=== PATIENT | male | born 1935 | race Caucasian/White ===

== ENCOUNTER 2021-06-02 13:25 | Observation (INO) | payer MEDICARE ==
[~2021-06-02] VITALS: Ht 182.9 cm; Wt 83.9 kg
[2021-06-02] MEDS ORDERED: VENTOLIN HFA18 GM INH (14:25)
[2021-06-02] MEDS ORDERED: ADVAIR 250-501 EACH INH (14:25)
[2021-06-02] MEDS ORDERED: SPIRIVA18 MCG INH (14:25)
[2021-06-02] MEDS ORDERED: LEVOTHYROXINE13 MCG PO (14:25)
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
--- NOTE | 2021-06-02 18:18 | NUR ---
DISCUSSED PLAN OF CARE WITH PT AND -CURRENT ILLNESS RSV. IV STEROIDS, OXPRN, AND LABS. PT WOULD LIKE TO STAY IN ROOM. rn WILL CALL HIS DAUGHTER KRISTIN.
--- NOTE | 2021-06-02 18:39 | NUR ---
TALKED TO PTS AWILDA GUERRA [phone] SHE IS UNABLE TO COME TO GET WILLIAM HIS - (NOT HER MOM) PT IS ALERT AND HE WOULD LIKE HER TO STAY.
--- NOTE | 2021-06-02 21:56 | NUR ---
PATIENT MOVED TO ROOM 114. PATIENT ASSESMENT COMPLETED. PATIENT IS ON RA. PATIENT DENIES ANY PAIN OR SOB. PATIENTS VITALS TAKEN AND RECORDED. INTAKE AND OUTPUT RECORDED. PATIENTS IV X2 FLUSHED AND ARE SL PER ORDER. PATIENTS SCHEDULED MEDICATIONS GIVEN PER ORDER. PATIENT DENIES ANY NEEDS. PRESENT IN THE ROOM. HOT TEA PROVIDED FOR . CALL LIGHT IN REACH.
--- NOTE | 2021-06-03 00:35 | NUR ---
PATIENTS URINAL EMPTIED. PATIENTS IS ASLEEP ON THE COUCH. PATIENT DENIES ANY NEEDS. CALL LIGHT IN REACH.
--- NOTE | 2021-06-03 03:00 | NUR ---
PATIENTS VITALS TAKEN AND RECORDED. INTAKE AND OUTPUT RECORDED. PATIENT DENIES ANY PAIN OR SOB. PATIENT DENIES ANY NEEDS. CALL LIGHT IN REACH.
--- NOTE | 2021-06-03 04:06 | NUR ---
PATIENT IS RESTING IN BED WITH EYES CLOSED, RR 18. CALL LIGHT IN REACH.
--- NOTE | 2021-06-03 06:29 | NUR ---
PATIENTS VITALS TAKEN AND RECORDED. INTAKE AND OUTPUT RECORDED. SCHEDULED MORNING MEDICATIONS GIVEN PER ORDER. PATIENT DENIES ANY SOB. PATIENT CONTINUES TO HAVE A PRODUCTIVE BROWN STREAKED SPUTUM. HE IS ON RA. PATIENT DENIES ANY NEEDS. CALL LIGHT IN REACH.
--- NOTE | 2021-06-03 07:22 | NUR ---
PT RESTING EYES CLOSED AT TIME OF SHIFT EXCHANGE, LEFT UNDISTURBED. CALL LIGHT AND NEEDED ITEMS IN REACH.
--- NOTE | 2021-06-03 09:37 | NUR ---
PT TOLERATES BREAKFAST WELL SITTING UP IN BED, IS PRESENT IN THE ROOM. PT BREATHING APPEARS EVEN AND UNLABORED, HE STATES "I FEEL A WHOLE LOT BETTER THAN WHEN I CAME IN" PT COUGH IS PRODUCTIVE. PT DENIES NEEDS AT THIS TIME STATE HE WANTS TO GO HOME.
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
--- NOTE | 2021-06-03 15:08 | NUR ---
PT RESTING IN BED APPEARS TO BE DOZING
--- NOTE | 2021-06-03 17:50 | NUR ---
DR SAPP IN TO SEE PT. ALL QUESTIONS ANSWERED. PT DENIES INCREASED SOB OR NEEDS AT THIS TIME. REAMINS ON ROOM AIR SATS LOW 90'S
--- NOTE | 2021-06-03 19:43 | NUR ---
BEDSIDE REPORT FROM TABBY Bernabe RN, PT RESTING IN BED ALERT AND ORIENTED, YUHAAVIATAM. VERALIZED NO NEEDS AT THIS TIME. NO DISTRESS NOTED AT THIS TIME.
--- NOTE | 2021-06-03 22:56 | NUR ---
PT RESTING IN BED WATCHING SPORTS ON TV. REPORTS NO PAIN. COUGHING OCCASSIONALLY HE DOES NOT WANT COUGH MEDICATIONS AT THIS TIME.
--- NOTE | 2021-06-04 00:09 | NUR ---
PT CALLED NURSES STATION TO REQUEST ASSISTANCE TO ADJUST THE HEAD OF HIS BED AND STRAIGHTEN HIS BLANKETS. EMPTIED HIS URINAL FOR 75ML OF CONCENTRATED URINE. PT HAS NO OTHER REQUESTS OR CONCERNS AT THIS TIME. CALLLIGHT IN REACH.
--- NOTE | 2021-06-04 03:30 | NUR ---
PT RESTING QUIETLY IN BED EYES CLOSED RR EVEN 18 BPM, NO DISTRESS NOTED.
--- NOTE | 2021-06-04 04:49 | NUR ---
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 NO NEW CONCERNS OVER SHIFT. HE HAS VERBALIZED WANTING TO DISCHARGE HOME TODAY IF POSSIBLE.
--- NOTE | 2021-06-04 06:05 | NUR ---
PT RESTIN IN BED ALERT AFTER LAB DRAW. V/S COMPLETE, ASSESSMENT COMPLETE. PT HAS NO OTHER CONCERNS OR REQUESTS, CALL LIGHT IN REACH
--- NOTE | 2021-06-04 07:03 | NUR ---
REPORT RECEIVED FROM SUZETTE NASCIMENTO. PT RESTING IN BED, WATCHING TV. PT ASSISTED WITH PLACING BREAKFAST ORDER. PT DENIES PAIN AND NAUSEA. 125ML CLEAR YELLOW URINE REMOVED FROM URINAL. NO ADDITIONAL REQUESTS OR COMPLAINTS. CALL LIGHT WITHIN REACH. BED RAILS UP.
--- NOTE | 2021-06-04 08:11 | NUR ---
MORNING ASSESSMENT AND MEDICATION DUE. PT RESTING IN BED, WATCHING TV. PT DENIES PAIN AND NAUSEA. IV'S ASSESSED, WNL, NO S/S OF PHLEBITIS NOTED. PT ALERT AND ORIENTED. MILD TACHYCARDIA NOTED WITH HEART RATE OF 103. PT REPORTS "YEAH, ITS' BEEN FAST FOR A WHILE." EXPIRATORY WHEEZE NOTED IN UPPER LOBES WELL UPPER AIRWAY. LUNG SOUNDS DEMINISHED IN BASES. PT REPORTS "I CAN FEEL THAT ITS TIME FOR ANOTHER BREATHING TREATEMENT." RR = 20 WITH OXYGEN SATURATIONS OF 94-95% ON ROOM AIR. PT CONTINUES COUGHING UP YELLOW THICK SPUTUM. EDUCATION DONE WITH PT REGARING RED/YELLOW/GREEN ZONES OF COPD. PT DEMONSTRATES UNDERSTANDING STATING "I'M ALMOST GREEN, I JUST DON'T HAVE ENERGY YET AND I'M STILL COUGHING STUFF UP." PT TALKING ON PHONE. NO ADDITIONAL REQUESTS OR COMPLAINTS. CALL LIGHT WITHIN REACH. BED RAILS UP.
--- NOTE | 2021-06-04 09:16 | NUR ---
THIS RN TO ROOM TO CHECK ON PT. PT SITTING UP IN BED EATING BREAKFAST. PT DECLINES TIME UP TO CHAIR. PT REPORTS HIS BREATHING "FEELS BETTER" AFTER HIS NEBULIZER TREATMENT. PT CONTINUES TO DENY PAIN AND NAUSEA. NO ADDITIONAL REQUESTS OR COMPLAINTS. CALL LIGHT WITHIN REACH.
--- NOTE | 2021-06-04 09:20 | NUR ---
PT REFUSED CHAIR. SUZETTE MUSE NOTIFIED. CALL LIGHT WITHIN REACH, NO FURTHER NEEDS AT THIS TIME.
--- NOTE | 2021-06-04 09:47 | NUR ---
PT SITTING UP IN BED WATCHING TV. CALL LIGHT WITHIN REACH, NO FURTHER NEEDS AT THIS TIME.
--- NOTE | 2021-06-04 10:00 | NUR ---
THIS RN TO ROOM TO CHECK ON PT. PT REPORTS HE WOULD LIKE TO GO HOME. PT ABLE TO CARRY ON CONVERSATION WITHOUT STOPPING FOR BREATH. PT DENIES PAIN AND NAUSEA. PT REPORTS HE FEELS HE IS BACK TO HIS BASELINE. MD UPDATED ON PT STATUS AND REQUEST. AWAITING NEW ORDERS. CALL LIGHT WITHIN REACH. BED RAILS UP.
--- NOTE | 2021-06-04 10:42 | NUR ---
MD TO BEDSIDE TO VISIT WITH PT. PT AGREES WITH PLAN FOR DISCHRAGE. IVs DC'D PER PROTOCOL. ISABELLA AND ASTON APPLIED. PT TALKING WITH FAMILY ON PHONE ABOUT PLAN FOR DISCHARGE. NO ADDIITONAL REQUESTS OR COMPLAINTS. CALL LIGHT WITHIN REACH.
--- NOTE | 2021-06-04 10:44 | NUR ---
MED REC COMPLETE
--- NOTE | 2021-06-04 11:08 | NUR ---
PT READY FOR DISCHARGE. PT DRESSES SELF, NO ASSISTANCE NEEDED. SHORTNESS OF BREATH INCREASES WITH ACTIVITY. PT RECOVERS AFTER 3-5 MINUTES OF RESTING. OXGYEN SATURATIONS REMAIN ABOVE 90% ON ROOM AIR. MILD TACHYCARDIA CONTINUES. DISCHARGE INSTRUCTIONS REVEIWED WITH PT. PT VERBALIZES UNDERSTANDING OF INSTRUCTIONS, MEDICATION, AND FOLLOW UP. PT UPTO RESTROOM INDEPENDNANTLY AND THEN TO WHEELCHAIR. PT WHEELED FROM MED/SURG. NO ADDITIONAL REQUESTS OR CONCERNS.
[2021-06-04] MEDS ORDERED: LEVOTHYROXINE75 MCG PO (11:13)
[2021-06-04] MEDS ORDERED: DILTIAZEM ER120 M2 PO (11:14)
--- NOTE | 2021-06-04 11:17 | NUR ---
ON THE WAY OUT THE DOOR PT STATES "OK, I GUESS I'LL HAVE THAT NEBULIZER." GIVEN BY THIS RN. PT TOLERATED WELL. IMPROVED WORK OF BREATHING AFTER TREATMENT. PT WHEELED FROM MED/SURG WITH BELONGINGS.
== END 2021-06-04 11:25 | disposition home or self-care (01) ==
LOC: ED 13:25 → MS 13:35
PROVIDERS: ADMIT Internal Medicine; ATTEND Internal Medicine
DX: J44.1 Chronic obstructive pulmonary disease with (acute) exacerbation (principal); J12.1 Respiratory syncytial virus pneumonia; I10 Essential (primary) hypertension; E03.9 Hypothyroidism, unspecified; R09.02 Hypoxemia; Z95.0 Presence of cardiac pacemaker; Z20.822 Contact with and (suspected) exposure to COVID-19; Z87.891 Personal history of nicotine dependence
CPT/HCPCS: 71045; 80048; 80053; 83605; 83880; 85025; 94640; 94760; C9803; J2920; J2930; J7030; U0003

== ENCOUNTER 2023-04-13 18:33 | Emergency (ER) | payer BC ==
[~2023-04-13] VITALS: Ht 182.9 cm; Wt 52.2 kg
[~2023-04-13 18:33] MED LIST: ADVAIR 250-501 EACH INH; DILTIAZEM ER240 MG PO; LEVOTHYROXINE13 MCG PO; LEVOTHYROXINE75 MCG PO; SPIRIVA18 MCG INH; VENTOLIN HFA18 GM INH
[2023-04-13] MEDS ORDERED: LEVOTHYROXINE50 MCG PO (18:47)
[2023-04-13] MEDS ORDERED: TIOTROPIUM BRO18 MCG INH (18:48)
[2023-04-13] MEDS ORDERED: MIRALAX119 GM PO (23:56)
[2023-04-14 01:00] VITALS: BP 162/81
== END 2023-04-14 01:00 | disposition home or self-care (01) ==
LOC: ED 18:33
DX: K59.00 Constipation, unspecified (principal); J44.9 Chronic obstructive pulmonary disease, unspecified; E03.9 Hypothyroidism, unspecified; I10 Essential (primary) hypertension; Z79.899 Other long term (current) drug therapy
CPT/HCPCS: 74018; 99283-25

== ENCOUNTER 2023-04-16 18:41 | Observation (INO) | payer MEDICARE ==
[~2023-04-16] VITALS: Ht 172.7 cm; Wt 54.0 kg
[~2023-04-16 18:41] MED LIST changes: +LEVOTHYROXINE50 MCG PO; +MIRALAX119 GM PO; +TIOTROPIUM BRO18 MCG INH
--- OUTSIDE RECORDS SUMMARY | 2023-04-16 18:49 | XMS ---
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 ETerence VISIT COUNT (12 MO.) 2 [facility] TOTAL 2 NOTE: Visits indicate total known visits. ED/UCC VISIT TRACKING (12 MO.) 04/16/2023 18:41 [facility] OR TYPE: Emergency COMPLAINT: - CONSTIPATION 04/13/2023 18:33 [facility] OR TYPE: Emergency COMPLAINT: - WEAKNESS DIAGNOSES: - Chronic obstructive pulmonary disease, unspecified - Constipation, unspecified - Essential (primary) hypertension - Hypothyroidism, unspecified - Other terminal computer operator (current) drug therapy INPATIENT VISIT TRACKING (12 MO.) No inpatient visits to display in this time frame [email or web address]
[2023-04-16 19:55] LABS: BASOPHILS 0.5 % (0-2); HEMATOCRIT 39.6 % (35.0-50.0); HEMOGLOBIN 13.4 g/dL (12.0-18.0); LYMPHOCYTES 14.7 % (24-44); MCH 31.7 (27-36); MCHC 33.9 g/dl (30-36); MCV 93.8 fl (81-99); MONOCYTES 15.1 % (0-12); NEUTROPHILS 67.7 % (39-80); PLATELET COUNT 219 K/uL (140-440); RBC 4.22 M/ul (4.3-5.7); RDW 12.2 (10.5-15.0)
[2023-04-16 20:21] LABS: ALBUMIN 3.4 g/dL (3.4-5.0); ALBUMIN/GLOBULIN RATIO 0.97 (1.1-2.4); BILIRUBIN, TOTAL 1.3 ng/dL (0.2-1.0); BUN/CREATININE RATIO 22.1 (6.0-28.6); CALCIUM 8.6 mg/dL (8.5-10.1); CREATININE, SERUM 1.9 mg/dL (0.70-1.30); MAGNESIUM 2.8 mg/dL (1.8-2.4); PROTEIN, TOTAL 6.9 g/dL (6.4-8.2); TSH, 3RD GENERATION 2.789 uIU/mL (0.358-3.740)
[2023-04-16 21:11] LABS: BILIRUBIN, URINE NEGATIVE (negative); BLOOD/HGB, URINE LARGE (Negative); KETONE, URINE NEGATIVE (Negative); LEUK ESTERASE, URINE SMALL (negative); NITRITE, URINE NEGATIVE (negative); PH, URINE 5.5 (5-7)
[2023-04-16 21:22] LABS: BACTERIA, URINE 1+ /hpf (negative); EPITHELIAL CELLS, URINE 0 /lpf (0-1+); RED BLOOD CELLS, URINE >50 /hpf (0-5); REFLEX CULTURE, URINE Yes (No); WHITE BLOOD CELLS, URINE 21-40 /HPF (0-5)
[2023-04-16 22:28] LABS: INFLUENZA B NAA NEGATIVE (NEGATIVE); RESPIRATORY SYNCYTIAL VIR NAA NEGATIVE (NEGATIVE)
[2023-04-16 23:03] VITALS: BP 145/59
[2023-04-16] MEDS ORDERED: ADULT LOW DOSE81 MG PO (23:08)
--- NOTE | 2023-04-16 23:20 | NUR ---
Pt admitted to room 120 from ER via stretcher, repositioned self from gourney to bed. alert and oriented, hx pacemaker placement 5 yrs ago, luisa CP or SOB. coop with assessment. lungs dim at bases, on room air. occassional moist productive cough of thick yellow phlegm present. bruised areas from elbows to hands. Pt states he is on aspirin but does not know how the bruising came about. f/c applied in ER today 04/16. draining QS pinkish-red colored urine. moves all extremities well. abd slight distention, soft, JOAQUIM. stated LBM when he came to the ER for constipation. Hx of constipation. IV LAC patent, will start LR as per orders. Oriented to room and procedures, cooperative, [place], reads lips. Fall precautions in place
--- NOTE | 2023-04-17 00:35 | NUR ---
Resting, eyes closed, on room air, IVF infusing, bed alrm on per fall precautions. no s/sx distress or requests
[2023-04-17 03:18] VITALS: BP 146/59
[2023-04-17 05:23] LABS: EOSINOPHILS 4.7 % (0-6); HEMATOCRIT 33.8 % (35.0-50.0); HEMOGLOBIN 11.6 g/dL (12.0-18.0); LYMPHOCYTES 21.8 % (24-44); MCH 31.8 (27-36); MCHC 34.4 g/dl (30-36); MCV 92.6 fl (81-99); MONOCYTES 14.4 % (0-12); NEUTROPHILS 58.1 % (39-80); PLATELET COUNT 189 K/uL (140-440); RBC 3.65 M/ul (4.3-5.7); RDW 12.3 (10.5-15.0)
[2023-04-17 05:50] LABS: ALBUMIN 2.7 g/dL (3.4-5.0); ANION GAP 13.2 (7-21); BILIRUBIN, TOTAL 0.9 ng/dL (0.2-1.0); BUN/CREATININE RATIO 23.35 (6.0-28.6); CALCIUM 8.1 mg/dL (8.5-10.1); CREATININE, SERUM 1.37 mg/dL (0.70-1.30); POTASSIUM 4.2 mmol/L (3.5-5.1); PROTEIN, TOTAL 5.4 g/dL (6.4-8.2)
[2023-04-17 06:34] VITALS: BP 132/58
--- NOTE | 2023-04-17 06:43 | NUR ---
Awakes easily, IVF infusing w/o problems. no c/o pain. f/c patent, draining dark yellow urine now with a few blood clots. f/c patent. pt tolerating liquids well, turns and repositions self in bed
--- NOTE | 2023-04-17 07:29 | NUR ---
RECIEVED SHIFT REPORT FROM NURSE. PT IS CURRENTLY IN BED RESTING. EVEN AND UNLABORED BREATHING NOTED. NO OTHER CARES NEEDED AT THIS TIME. CALL LIGHT WITHIN REACH
--- NOTE | 2023-04-17 08:46 | NUR ---
PT IS CURRENTLY IN BED EATING BREAKFAST. PT HAD FLU SHOT ORDERED. WHEN OFFERED PT STATED HE WANTED TO RECIEVE THE SHOT. FLU SHOT GIVEN. PT TOLERATED WELL. NO OTHER CARES ARE NEEDED OR REQUESTED AT THIS TIME. CALL LIGHT WITHIN REACH
[2023-04-17 10:00] VITALS: BP 134/48
--- NOTE | 2023-04-17 11:02 | NUR ---
DR JOSEPHINE DOCKERYED THE DC OF PT DILAN AND DC CONTINUOUS LR FLUID. PT TOLERATED WELL. ALSO PT DAUGHTER MICKEY IN ROOM. NO OTHER CARES NEEDED OR REQUESTED AT THIS TIME. CALL LIGHT WITHIN REACH
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
[2023-04-17 13:22] VITALS: BP 112/50
--- NOTE | 2023-04-17 14:37 | NUR ---
UR NOTE MCG GENERAL CRITERIA: OBSERVATION CARE (ISC) 04/17/23 MET AT ADMIT
--- NOTE | 2023-04-17 15:28 | NUR ---
BLADDER SCANNED FOR 410. GIVEN ANOTHER ENSURE PER HIS REQUEST AND INSTRUCTED TO DRINK MORE. DTR IN ROOM AND GIVEN THE BUSINESS CARDS FOR MILAGRO.
--- NOTE | 2023-04-17 15:45 | NUR ---
SPOKE WITH DTR REGARDING CARE AND FOLLOW UP.
--- NOTE | 2023-04-17 17:06 | NUR ---
PT HASN'T URINATED SINCE KONG CATHETER WAS OUT. BLADDER SCANNED EARLIER REVEALED 410 MLS. BLADDER SCAN NOW SHOWED 544 ML. PT WAS ENCOURAGED TO USE THE RESTROOM WITH NO SUCCESS. ENCOURAGED TO AMBULATE THE BRIGGS AND PATIENT DID FINE BUT WHEN HE WENT BACK TO HIS ROOM TO TRY AND URINATE THERE NO SUCCESS. DR BURTON CALLED AND INFORMED HIM OF THE SITUATION AND DR BURTON ORDERED FOR PT TO BE STRAIGHT CATH'D.
[2023-04-17 18:11] VITALS: BP 118/50
--- NOTE | 2023-04-17 18:42 | NUR ---
PT STILL UNABLE TO VOID AFTER TRYING AGAIN, DRINKING JUICE, AMBULATING. STRAIGHT CATHD FOR 530ML.TOLERATED WELL AND NO BLOOD NOTED. PT REPORTS FEELING NO DIFFERENCE AFTER DRAINING THE URINE. SAMPLE SENT TO LAB PER DR BURTON.
[2023-04-17 19:07] LABS: BILIRUBIN, URINE NEGATIVE (negative); BLOOD/HGB, URINE LARGE (Negative); KETONE, URINE NEGATIVE (Negative); LEUK ESTERASE, URINE TRACE (negative); NITRITE, URINE NEGATIVE (negative)
[2023-04-17 19:12] LABS: WHITE BLOOD CELLS, URINE 21-40 /HPF (0-5)
[2023-04-17 19:14] LABS: BACTERIA, URINE RARE /hpf (negative); CRYSTALS, URINE NONE SEEN (0-1+); EPITHELIAL CELLS, URINE 0 /lpf (0-1+); REFLEX CULTURE, URINE No (No)
[2023-04-17 19:19] LABS: CASTS, URINE NONE SEEN \\lpf
[2023-04-17 19:20] LABS: COLLECTION TYPE, URINE CATH
--- NOTE | 2023-04-17 19:42 | NUR ---
REPORT RECEIVED FROM SUZETTE WEINSTEIN. pt RESTING IN BED AWAKE, WATCHING TV. DENIES NEEDS. CALL LIGHT IN REACH. BED ALARM ON.
[2023-04-17 20:23] VITALS: BP 123/60
--- NOTE | 2023-04-17 20:39 | NUR ---
VS COMPLETE, STABLE. pt RATES PAIN 1-2/10 "DOWN THERE, MY BALLS HURT". PRN TYLENOL ADMINISTERED. ASSESSMENT COMPLETE. ICE WATER REFILLED. CRANBERRY JUICE PROVIDED. pt DENIES NEED TO VOID AT THIS TIME. CALL LIGHT IN REACH.
--- NOTE | 2023-04-17 20:52 | NUR ---
PHONE CALL TO MD, TELEPHONE ORDER RECEIVED FOR SCHEDULED FLOMAX DAILY. ORDER TO STRAIGHT CATH FOR GREATER THAN 500 MLS URINARY RETENTION. ORDERS REPEATED BACK TO VERIFY.
--- NOTE | 2023-04-17 21:10 | NUR ---
SCHEDULED FLOMAX ADMINISTERED. EDUCATION PROVIDED. pt WATCHING TV. DENIES ANY NEEDS.
--- NOTE | 2023-04-18 00:15 | NUR ---
CHECKED ON pt. RESTING IN BED WITH EYES CLOSED. BREATHING EQUAL AND UNLABORED. BED ALARM ON.
--- NOTE | 2023-04-18 02:26 | NUR ---
CALL LIGHT ANSWERED. pt DROPPED REMOTE. BLADDER SCAN FOR >646 AT THIS TIME. SBA TO RESTROOM, pt UNABLE TO VOID. LOOSE BM NOTED. pt BACK IN BED, STRAIGHT CATH FOR 725 MLS BY SUZETTE OSPINA. pt TOLERATED WELL. STERILE TECHNIQUE MAINTAINED. WARM BLANKET PROVIDED. pt RESTING IN BED WATCHING TV AT THIS TIME.
[2023-04-18 05:26] VITALS: BP 115/44
[2023-04-18 05:29] LABS: MCH 31.9 (27-36)
--- NOTE | 2023-04-18 05:30 | NUR ---
pt AWAKE FOR LAB DRAW. VSS. DENIES TOILETING NEEDS. pt REQUESTING TO SLEEP, DROWSY. LIGHTS OFF IN ROOM. CALL LIGHT IN REACH.
[2023-04-18 05:32] LABS: BASOPHILS 1.1 % (0-2); EOSINOPHILS 8.2 % (0-6); HEMATOCRIT 34.1 % (35.0-50.0); HEMOGLOBIN 11.7 g/dL (12.0-18.0); LYMPHOCYTES 26.7 % (24-44); MCHC 34.4 g/dl (30-36); MCV 92.6 fl (81-99); MONOCYTES 17.1 % (0-12); NEUTROPHILS 46.9 % (39-80); PLATELET COUNT 210 K/uL (140-440); RBC 3.68 M/ul (4.3-5.7); RDW 12.4 (10.5-15.0)
[2023-04-18 05:40] LABS: ANION GAP 10.1 (7-21); BUN/CREATININE RATIO 20.16 (6.0-28.6); CALCIUM 8.1 mg/dL (8.5-10.1); CREATININE, SERUM 1.19 mg/dL (0.70-1.30); POTASSIUM 4.1 mmol/L (3.5-5.1)
--- NOTE | 2023-04-18 07:22 | NUR ---
VERBAL REPORT RECEIVED FROM SUZETTE BARRERA. PT RESTS IN BED WITH EYES CLOSED, RESP EVEN AND UNLABORED, 20 RPM.
--- NOTE | 2023-04-18 08:08 | NUR ---
PATIENT UP TO BATHROOM AND BACK TO SITTING UP IN BED, SBA. CALL LIGHT IN REACH. NO FURHTER NEEDS AT THIS TIME.
--- NOTE | 2023-04-18 09:40 | NUR ---
0903 - PT REPORTS DULL PAIN IN HIS LOWER ABDOMEN. DENIES SENSATION TO VOID. BLADDER SCAN SHOWS 602 MLS. PT ATTEMPTS TO VOID, PASSES BM, UNCERTAIN IF VOID OCCURRED. BLADDER SCAN REPEATED FOR PVR, 621 MLS NOTED IN BLADDER. STRAIGHT CATH PERFORMED VIA STERILE TECHNIQUE WITH 14 FR. 650 MLS OF URINE REMOVED. PT REPORTS RELIEF OF LOWRE ABDOMINAL PAIN. RESISTANCE NOTED DURING STRAIGHT CATH.
--- NOTE | 2023-04-18 11:40 | NUR ---
Spoke with Lg. He states he resides at [facility]. He drives and does not use any DME. His lives at [facility] and he sees her daily. He denies any needs at this time. Pt has not been able to void with feng removal. Dr. Cohn and Ena Rn are setting fu appt for pt to see Dr. Chinchilla and chief technology officer for feng care as needed. Ena was faxing RX and chart to Dr. Chinchilla office.
--- NOTE | 2023-04-18 12:30 | NUR ---
PT SITS UP IN BED, EATS LUNCH. ICE WATER AND CRANBERRY JUICE PROVIDED. CALL LIGHT IN REACH. NO FURTHER REQUESTS AT THIS TIME.
--- NOTE | 2023-04-18 13:51 | NUR ---
PT APPEARED TO BE SLEEPING WITH CURTAIN CLOSED AND LIGHTS OFF. DID NOT DISTURB. PRAYED SILENTLY FOR PROTESTANT OF PROPER BODILY FUNCTION.
[2023-04-18] MEDS ORDERED: TAMSULOSIN HCL0.4 MG PO (14:03)
--- NOTE | 2023-04-18 14:19 | NUR ---
PT UP TO BATHROOM, UNABLE TO VOID, PASSES SMALL BM.
--- NOTE | 2023-04-18 15:20 | NUR ---
16 FR KONG CATHETER INSERTED VIA STERILE TECHNIQUE, URINE RETURN NOTED, KONG ADVANCED 1 CM, BALLOON FILLED WITH 10 CC OF NS AND SEEDED. CATHETER SECURED TO RLE. PT TOLERATED WELL. GRAVITY BAG IN PLACE DRAINS CLEAR YELLOW URINE.
[2023-04-18 15:32] VITALS: BP 131/43
--- NOTE | 2023-04-18 16:31 | NUR ---
DISCHARGE INSTRUCTIONS REVIEWED WITH PATIENT, QUESTIONS AND ANSWERS. PATIENT WAS ABLE TO EMPTY HIS KONG CATHETER INTO THE TOILET, IS MINDFUL OF WHERE HIS KONG BAG IS. PATIENT UP TO BATHROOM TO TRY AND BM BEFORE D/C. PATIENT IS GETTING HELP DRESSING.
[2023-04-18 16:58] VITALS: BP 134/47
== END 2023-04-18 17:45 | disposition home or self-care (01) ==
LOC: ED 18:41 → MS 18:42
PROVIDERS: Internal Medicine; ADMIT Family Medicine; ATTEND Family Medicine
DX: N13.9 Obstructive and reflux uropathy, unspecified (principal); K59.09 Other constipation; N17.9 Acute kidney failure, unspecified; J44.9 Chronic obstructive pulmonary disease, unspecified; I10 Essential (primary) hypertension; E03.9 Hypothyroidism, unspecified
CPT/HCPCS: 36415; 51702; 51798; 74176; 80048; 80053; 81001; 83735; 84443; 85025; 87088; 87502; A9270; G0008; G0378; J0696; J7121; U0002

== ENCOUNTER 2023-05-04 10:43 | Emergency (ER) | payer MEDICARE ==
[~2023-05-04] VITALS: Ht 172.7 cm; Wt 54.7 kg
[~2023-05-04 10:43] MED LIST changes: +ADULT LOW DOSE81 MG PO; +TAMSULOSIN HCL0.4 MG PO
--- OUTSIDE RECORDS SUMMARY | 2023-05-04 10:52 | XMS ---
PreManage Notification: WILFREDO SERVIN Security Barrel Bung Remover And Dumper Events No recent Security Events currently on file CRITERIA MET - [facility] - 2 Visits in 30 Days CARE PROVIDERS EDELMIRA VARGAS Internal Medicine Current PHONE: Unknown [facility] Current PHONE: Unknown Srinivasa has no Care Guidelines for this patient. ETerence VISIT COUNT (12 MO.) [address] [place] [address] TOTAL 3 NOTE: Visits indicate total known visits. ED/UCC VISIT TRACKING (12 MO.) 05/04/2023 10:44 [facility] OR TYPE: Emergency COMPLAINT: - LOWER EXTREMITY SWELLING 04/16/2023 18:41 [facility] OR TYPE: Emergency COMPLAINT: - CONSTIPATION 04/13/2023 18:33 [facility] OR TYPE: Emergency COMPLAINT: - WEAKNESS DIAGNOSES: - Chronic obstructive pulmonary disease, unspecified - Constipation, unspecified - Essential (primary) hypertension - Hypothyroidism, unspecified - Other mcfp (current) drug therapy INPATIENT VISIT TRACKING (12 MO.) 04/16/2023 18:[address] [facility] OR TYPE: Observation COMPLAINT: - ACUTE KIDNEY INJURY, UTI DIAGNOSES: - Acute kidney failure, unspecified - Chronic obstructive pulmonary disease, unspecified - Encounter for screening for COVID-19 - Essential (primary) hypertension - Hypothyroidism, unspecified - Obstructive and reflux uropathy, unspecified - Other constipation [email or web address]
[2023-05-04] MEDS ORDERED: CLOTRIMAZOLE-BE15 GM TOP (11:34)
[2023-05-04 12:00] VITALS: BP 124/55
== END 2023-05-04 12:00 | disposition home or self-care (01) ==
LOC: ED 10:43
DX: N48.1 Balanitis (principal); J44.9 Chronic obstructive pulmonary disease, unspecified; I10 Essential (primary) hypertension; E03.9 Hypothyroidism, unspecified; Z95.0 Presence of cardiac pacemaker; Z79.899 Other long term (current) drug therapy; Z79.890 Hormone replacement therapy
CPT/HCPCS: 99283

== ENCOUNTER 2023-05-10 20:36 | Emergency (ER) | payer MEDICARE ==
[~2023-05-10] VITALS: Ht 172.7 cm; Wt 59.0 kg
[~2023-05-10 20:36] MED LIST changes: +CLOTRIMAZOLE-BE15 GM TOP
--- OUTSIDE RECORDS SUMMARY | 2023-05-10 20:41 | XMS ---
PreManage Notification: WILFREDO SERVIN Security Maintenance Repairman Events No recent Security Events currently on file CRITERIA MET - [facility] - 2 Visits in 30 Days CARE PROVIDERS EDELMIRA VARGAS Internal Medicine Current PHONE: Unknown [facility] Current PHONE: Unknown Srinivasa has no Care Guidelines for this patient. ETerence VISIT COUNT (12 MO.) [address] [place] [address] TOTAL 4 NOTE: Visits indicate total known visits. ED/UCC VISIT TRACKING (12 MO.) 05/10/2023 20:36 [facility] OR TYPE: Emergency COMPLAINT: - SHORTNESS OF BREATH 05/04/2023 10:44 [facility] OR TYPE: Emergency COMPLAINT: - LOWER EXTREMITY SWELLING DIAGNOSES: - Balanitis - Chronic obstructive pulmonary disease, unspecified - Disorder of penis, unspecified - Essential (primary) hypertension - Hormone replacement therapy - Hypothyroidism, unspecified - Other ad terminal makeup operator (current) drug therapy - Presence of cardiac pacemaker 04/16/2023 18:41 [facility] OR TYPE: Emergency COMPLAINT: - CONSTIPATION 04/13/2023 18:33 [facility] OR TYPE: Emergency COMPLAINT: - WEAKNESS DIAGNOSES: - Chronic obstructive pulmonary disease, unspecified - Constipation, unspecified - Essential (primary) hypertension - Hypothyroidism, unspecified - Other ad terminal makeup operator (current) drug therapy INPATIENT VISIT TRACKING (12 MO.) 04/16/2023 18:42 [facility] OR TYPE: Observation COMPLAINT: - ACUTE KIDNEY INJURY, UTI DIAGNOSES: - Acute kidney failure, unspecified - Chronic obstructive pulmonary disease, unspecified - Contact with and (suspected) exposure to COVID-19 - Encounter for screening for COVID-19 - Essential (primary) hypertension - Hypothyroidism, unspecified - Obstructive and reflux uropathy, unspecified - Other constipation [email or web address]
[2023-05-10] MEDS ORDERED: SPIRIVA18 MCG INH (20:50)
[2023-05-10] MEDS ORDERED: TAMSULOSIN HCL0.4 MG PO (20:50)
[2023-05-10 21:08] LABS: PH, VENOUS 7.399 (7.31-7.41)
[2023-05-10 21:11] LABS: BASOPHILS 0.2 % (0-2); EOSINOPHILS 0.6 % (0-6); HEMOGLOBIN 11.9 g/dL (12.0-18.0); LYMPHOCYTES 6.3 % (24-44); MCH 31.4 (27-36); MCHC 33.2 g/dl (30-36); MCV 94.7 fl (81-99); MONOCYTES 2.5 % (0-12); NEUTROPHILS 90.4 % (39-80); PLATELET COUNT 216 K/uL (140-440); RDW 12.7 (10.5-15.0)
[2023-05-10 21:23] LABS: INFLUENZA B NAA NEGATIVE (NEGATIVE); RESPIRATORY SYNCYTIAL VIR NAA NEGATIVE (NEGATIVE)
[2023-05-10 21:29] LABS: LACTIC ACID, BLOOD 1.3 mmol/L (0.4-2.0)
[2023-05-10 21:36] LABS: ALBUMIN 3.6 g/dL (3.4-5.0); ALBUMIN/GLOBULIN RATIO 1.09 (1.1-2.4); ANION GAP 12.3 (7-21); BILIRUBIN, TOTAL 1.1 ng/dL (0.2-1.0); BUN/CREATININE RATIO 17.75 (6.0-28.6); CALCIUM 8.6 mg/dL (8.5-10.1); CREATININE, SERUM 1.07 mg/dL (0.70-1.30); POTASSIUM 4.3 mmol/L (3.5-5.1); PROTEIN, TOTAL 6.9 g/dL (6.4-8.2)
[2023-05-10 22:40] VITALS: BP 130/53
--- NOTE | 2023-05-11 15:22 | EKG ---
[facility] [address] [facility] [place] [address] Signed Sinus tachycardia Nonspecific T wave abnormality Abnormal ECG No previous ECGs available Confirmed by LISA GARNER MD ([id number]) on 05/11/2023 3:22:13 PM Electronically Signed By: LISA GARNER 05/11/23 1522 PATIENT NAME: WILFREDO SERVIN CARIN Electrocardiogram DATE OF : 35 PHYSICIAN: LISA GARNER REPORT #: [id number] REPORT IS CONFIDENTIAL AND NOT TO BE RELEASED WITHOUT AUTHORIZATION
== END 2023-05-10 22:42 | disposition home or self-care (01) ==
LOC: ED 20:36
PROVIDERS: Family Medicine
DX: J44.1 Chronic obstructive pulmonary disease with (acute) exacerbation (principal); I10 Essential (primary) hypertension; E03.9 Hypothyroidism, unspecified; Z11.52 Encounter for screening for COVID-19; Z79.51 Long term (current) use of inhaled steroids; Z79.82 Long term (current) use of aspirin; Z79.890 Hormone replacement therapy; Z79.899 Other long term (current) drug therapy; Z20.822 Contact with and (suspected) exposure to COVID-19
CPT/HCPCS: 36415; 71045; 80053; 82803; 83605; 83880; 85025; 87502; 93005; 93010; 94640; 96374; 99285-25; A9270; C9803; J2930; U0002

== ENCOUNTER 2023-06-24 07:57 | Emergency (ER) | payer OTHER, MEDICARE ==
[~2023-06-24] VITALS: Ht 172.7 cm; Wt 56.1 kg
[~2023-06-24 07:57] MED LIST changes: +LASIX20 MG PO; +PREDNISONE20 MG PO
--- OUTSIDE RECORDS SUMMARY | 2023-06-24 08:01 | XMS ---
PreManage Notification: WILFREDO SERVIN Security Chief Merchandising Officer Events No recent Security Events currently on file CRITERIA MET - 6 ED Visits in 6 Months - [facility] - 2 Visits in 30 Days CARE PROVIDERS EDELMIRA VARGAS Internal Medicine Current PHONE: Unknown [facility] Current PHONE: Unknown Srinivasa has no Care Guidelines for this patient. Robinson VISIT COUNT (12 MO.) [address] [place] [address] TOTAL 6 NOTE: Visits indicate total known visits. ED/UCC VISIT TRACKING (12 MO.) 06/24/2023 07:57 [facility] OR TYPE: Emergency COMPLAINT: - DIFFICULTY BREATHING 06/19/2023 16:43 [facility] OR TYPE: Emergency COMPLAINT: - FOOT SWELLING DIAGNOSES: - Chronic obstructive pulmonary disease with (acute) exacerbation - Heart failure, unspecified - Hormone replacement therapy - Hypertensive heart disease with heart failure - Hypo-osmolality and hyponatremia - Hypothyroidism, unspecified - alf (current) use of aspirin - Other shelter (current) drug therapy - Presence of cardiac pacemaker - Shortness of breath 05/10/2023 20:36 [facility] OR TYPE: Emergency COMPLAINT: - SHORTNESS OF BREATH DIAGNOSES: - Chronic obstructive pulmonary disease with (acute) exacerbation - Contact with and (suspected) exposure to COVID-19 - Encounter for screening for COVID-19 - Essential (primary) hypertension - Hormone replacement therapy - Hypothyroidism, unspecified - keno terminal operator (current) use of aspirin - alf (current) use of inhaled steroids - Other long term care pharmacist (current) drug therapy - Shortness of breath 05/04/2023 10:44 [facility] OR TYPE: Emergency COMPLAINT: - LOWER EXTREMITY SWELLING DIAGNOSES: - Balanitis - Chronic obstructive pulmonary disease, unspecified - Disorder of penis, unspecified - Essential (primary) hypertension - Hormone replacement therapy - Hypothyroidism, unspecified - Other shelter (current) drug therapy - Presence of cardiac pacemaker 04/16/2023 18:41 [facility] OR TYPE: Emergency COMPLAINT: - CONSTIPATION 04/13/2023 18:33 [facility] OR TYPE: Emergency COMPLAINT: - WEAKNESS DIAGNOSES: - Chronic obstructive pulmonary disease, unspecified - Constipation, unspecified - Essential (primary) hypertension - Hypothyroidism, unspecified - Other long term care pharmacist (current) drug therapy INPATIENT VISIT TRACKING (12 MO.) 04/16/2023 18:42 [facility] OR TYPE: Observation COMPLAINT: - ACUTE KIDNEY INJURY, UTI DIAGNOSES: - Acute kidney failure, unspecified - Chronic obstructive pulmonary disease, unspecified - Contact with and (suspected) exposure to COVID-19 - Encounter for screening for COVID-19 - Essential (primary) hypertension - Hypothyroidism, unspecified - Obstructive and reflux uropathy, unspecified - Other constipation [email or web address]
[2023-06-24 08:12] LABS: BASOPHILS 0.2 % (0-2); EOSINOPHILS 0.8 % (0-6); HEMATOCRIT 33.1 % (35.0-50.0); HEMOGLOBIN 11.3 g/dL (12.0-18.0); LYMPHOCYTES 9.3 % (24-44); MCH 31.6 (27-36); MCHC 34.1 g/dl (30-36); MCV 92.7 fl (81-99); MONOCYTES 9.7 % (0-12); PLATELET COUNT 200 K/uL (140-440); RBC 3.57 M/ul (4.3-5.7); RDW 13.3 (10.5-15.0)
[2023-06-24 08:38] LABS: ALBUMIN/GLOBULIN RATIO 0.97 (1.1-2.4); ANION GAP 11.9 (7-21); BILIRUBIN, TOTAL 1.5 ng/dL (0.2-1.0); BUN/CREATININE RATIO 21.73 (6.0-28.6); CALCIUM 8.4 mg/dL (8.5-10.1); CREATININE, SERUM 1.15 mg/dL (0.70-1.30); POTASSIUM 3.9 mmol/L (3.5-5.1); PROTEIN, TOTAL 6.1 g/dL (6.4-8.2)
[2023-06-24] MEDS ORDERED: IPRAT-ALBUT 0.5-3 ML INH (09:25)
[2023-06-24] MEDS ORDERED: VENTOLIN HFA18 GM INH (09:25)
[2023-06-24] MEDS ORDERED: NEBULIZER UNIT XX (09:26)
[2023-06-24 09:48] VITALS: BP 107/57
[2023-06-24] MEDS ORDERED: K-TAB ER20 MEQ PO (10:23)
[2023-06-24] MEDS ORDERED: LASIX20 MG PO (10:23)
[2023-06-24] MEDS ORDERED: PREDNISONE20 MG PO (10:23)
== END 2023-06-24 11:44 | disposition home or self-care (01) ==
LOC: ED 07:57
PROVIDERS: Emergency Medicine
DX: J44.1 Chronic obstructive pulmonary disease with (acute) exacerbation (principal); I11.0 Hypertensive heart disease with heart failure; I50.9 Heart failure, unspecified; Z79.52 Long term (current) use of systemic steroids; Z79.899 Other long term (current) drug therapy; Z79.82 Long term (current) use of aspirin
CPT/HCPCS: 36415; 71045; 80053; 83880; 85025; 87502; 94640; 94664; 96374; 96375; 99285-25; J1940; J2930; U0002

== ENCOUNTER 2023-07-06 18:47 | Emergency (ER) | payer OTHER, MEDICARE ==
[~2023-07-06] VITALS: Ht 175.3 cm; Wt 56.1 kg
[~2023-07-06 18:47] MED LIST changes: +IPRAT-ALBUT 0.5-3 ML INH; +K-TAB ER20 MEQ PO; +NEBULIZER UNIT XX
--- OUTSIDE RECORDS SUMMARY | 2023-07-06 18:54 | XMS ---
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 Robinson VISIT COUNT (12 MO.) [address] [place] [address] TOTAL 7 NOTE: Visits indicate total known visits. ED/UCC VISIT TRACKING (12 MO.) 07/06/2023 18:47 ANASTASIYA Archer OR TYPE: Emergency COMPLAINT: - CATHETER PROBLEM 06/24/2023 07:57 ANASTASIYA rAcher OR TYPE: Emergency COMPLAINT: - DIFFICULTY BREATHING DIAGNOSES: - Chronic obstructive pulmonary disease with (acute) exacerbation - Heart failure, unspecified - Hypertensive heart disease with heart failure - halfway (current) use of aspirin - intermediate manager (current) 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 - Other joint terminal attack controller (current) drug therapy - Shortness of breath 06/19/2023 16:43 ANASTASIYA [facility] OR TYPE: Emergency COMPLAINT: - FOOT SWELLING DIAGNOSES: - Chronic obstructive pulmonary disease with (acute) exacerbation - Heart failure, unspecified - Hormone replacement therapy - Hypertensive heart disease with heart failure - Hypo-osmolality and hyponatremia - Hypothyroidism, unspecified - intermediate manager (current) use of aspirin - Other joint terminal attack controller (current) drug therapy - Presence of cardiac pacemaker - Shortness of breath 05/10/2023 20:36 ANASTASIYA [facility] OR TYPE: Emergency COMPLAINT: - SHORTNESS OF BREATH DIAGNOSES: - Chronic obstructive pulmonary disease with (acute) exacerbation - Contact with and (suspected) exposure to COVID-19 - Encounter for screening for COVID-19 - Essential (primary) hypertension - Hormone replacement therapy - Hypothyroidism, unspecified - intermediate manager (current) use of aspirin - intermediate manager (current) use of inhaled steroids - Other joint terminal attack controller (current) drug therapy - Shortness of breath 05/04/2023 10:44 ANASTASIYA Archer OR TYPE: Emergency COMPLAINT: - LOWER EXTREMITY SWELLING DIAGNOSES: - Balanitis - Chronic obstructive pulmonary disease, unspecified - Disorder of penis, unspecified - Essential (primary) hypertension - Hormone replacement therapy - Hypothyroidism, unspecified - Other joint terminal attack controller (current) drug therapy - Presence of cardiac pacemaker 04/16/2023 18:41 ANASTASIYA Archer OR TYPE: Emergency COMPLAINT: - CONSTIPATION 04/13/2023 18:33 ANASTASIYA Archer OR TYPE: Emergency COMPLAINT: - WEAKNESS DIAGNOSES: - Chronic obstructive pulmonary disease, unspecified - Constipation, unspecified - Essential (primary) hypertension - Hypothyroidism, unspecified - Other skilled nursing (current) drug therapy INPATIENT VISIT TRACKING (12 MO.) 04/16/2023 18:42 ANASTASIYA Archer OR TYPE: Observation COMPLAINT: - ACUTE KIDNEY INJURY, UTI DIAGNOSES: - Acute kidney failure, unspecified - Chronic obstructive pulmonary disease, unspecified - Contact with and (suspected) exposure to COVID-19 - Encounter for screening for COVID-19 - Essential (primary) hypertension - Hypothyroidism, unspecified - Obstructive and reflux uropathy, unspecified - Other constipation [email or web address]
[2023-07-06 21:24] VITALS: BP 130/56
== END 2023-07-06 21:24 | disposition home or self-care (01) ==
LOC: ED 18:47
DX: T83.098A Other mechanical complication of other urinary catheter, initial encounter (principal); J44.9 Chronic obstructive pulmonary disease, unspecified; E03.9 Hypothyroidism, unspecified; I10 Essential (primary) hypertension; K59.09 Other constipation; Z79.52 Long term (current) use of systemic steroids; Z79.899 Other long term (current) drug therapy; Z79.51 Long term (current) use of inhaled steroids; Z79.890 Hormone replacement therapy; Z79.82 Long term (current) use of aspirin
CPT/HCPCS: 99283

== ENCOUNTER 2024-01-18 14:14 | Inpatient (IN) | payer MEDICARE ==
[~2024-01-18] VITALS: Ht 175.3 cm; Wt 44.7 kg
[2024-01-18] MEDS ORDERED: FUROSEMIDE20 MG PO (15:44)
[2024-01-18] MEDS ORDERED: CITALOPRAM HBR10 MG PO (15:44)
[2024-01-18] MEDS ORDERED: SODIUM CHLORIDE 0.9% 1,000 ML IV ONE (16:00)
[2024-01-18 16:05] LABS: BASOPHILS 0.4 % (0-2); EOSINOPHILS 1.2 % (0-6); HEMATOCRIT 39.1 % (35.0-50.0); HEMOGLOBIN 13.3 g/dL (12.0-18.0); LYMPHOCYTES 24.7 % (24-44); MCH 31.7 (27-36); MCHC 34.1 g/dl (30-36); MONOCYTES 11.3 % (0-12); NEUTROPHILS 62.4 % (39-80); RDW 13.2 (10.5-15.0)
[2024-01-18 16:22] LABS: PLATELET COUNT 226 K/uL (140-440); SMEAR REVIEW BLOOD SEE COMMENTS
[2024-01-18 16:48] LABS: ALBUMIN 3.8 g/dL (3.4-5.0); ALBUMIN/GLOBULIN RATIO 1.12 (1.1-2.4); ANION GAP 16.1 (7-21); BILIRUBIN, TOTAL 1.1 ng/dL (0.2-1.0); BUN/CREATININE RATIO 21.07 (6.0-28.6); CALCIUM 9.3 mg/dL (8.5-10.1); CREATININE, SERUM 2.04 mg/dL (0.70-1.30); POTASSIUM 4.1 mmol/L (3.5-5.1); PROTEIN, TOTAL 7.2 g/dL (6.4-8.2)
[2024-01-18] MEDS ORDERED: DEXTROSE 5% - NACL 0.45% 1,000 ML IV SCH (17:30)
[2024-01-18] MEDS ORDERED: PROCHLORPERAZINE EDISYLATE 10 MG/2 ML VIAL IV PRN (18:15)
[2024-01-18] MEDS ORDERED: ondansetron HCL 4 MG/2 ML VIAL IV PRN (18:15)
[2024-01-18] MEDS ORDERED: ACETAMINOPHEN 500 MG TAB PO PRN (18:15)
[2024-01-18] MEDS ORDERED: ALBUTEROL SULFATE 0.083% 3 ML VIAL INH PRN (19:00)
[2024-01-18 19:01] VITALS: BP 125/55
--- NOTE | 2024-01-18 19:58 | NUR ---
CALL LIGHT ANSWERED. PT NEEDED TO HAVE A BM. DUPLICATING MACHINE MECHANIC SBA WITH WALKER TO BATHROOM. PT HAD LIQUID BM. PT ASSISTED BACK TO BED. CPOX AND SCDS RECONNECTED. PT STATES NO FURTHER NEEDS AT THIS TIME. CALL LIGHT WITHIN REACH.
--- NOTE | 2024-01-18 19:59 | NUR ---
REPORT RECIEVED FROM DAY SHIFT RN. PATIENT RESTING IN BED WATCHING TV. PATIENT DENIES NEEDS AT THIS TIME. CALL LIGHT IN REACH. PATIENT EDUCATED WOODWORKING BELT SANDER LIGHT AND ROOM. PATIENT VERBILIZED UNDERSTANDING.
[2024-01-18] MEDS ORDERED: BUDESONIDE 0.5 MG/2 ML VIAL INH SCH (20:00)
[2024-01-18] MEDS ORDERED: ALBUTEROL/IPRATROPIUM 3 ML NEB INH SCH (20:00)
--- NOTE | 2024-01-18 20:15 | NUR ---
COMPLETED ADMISSION PROCESS. PT IN BED, ELEN, STATES HE LIVES AT [facility], HAS A PERSON TO DO HIS "MEDICATIONS", DOES NOT KNOW WHAT HE TAKES. AMBULATES WITH FWW, SBA; WEARING O2, HAS OXYGEN AVAILABLE AT HOME WELL. 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 FRESH ICE WATER GIVEN; WARM BLANKET FOR FEET. CPOX READING 100% OW; CT 82
[2024-01-18] MEDS ORDERED: MELATONIN 3 MG TAB PO PRN (21:00)
[2024-01-18] MEDS ORDERED: SODIUM CHLORIDE 0.9% 1,000 ML IV SCH (21:15)
[2024-01-18 21:49] VITALS: BP 11/61; BP 111/61
--- NOTE | 2024-01-18 21:53 | NUR ---
CALL LIGHT ANSWERED. PT NEEDED TO HAVE BM. BOX SHOOK PATCHER 1PA WITH WALKER TO BATHROOM. PT HAD BM. BOX SHOOK PATCHER ASSISTED PT BACK TO BED. BOX SHOOK PATCHER OBTAINED VITALS AND I&O. CATH BAG EMPTIED. PT STATES NO FURTHER NEEDS AT THIS TIME. CALL LIGHT WITHIN REACH.
[2024-01-18] MEDS ORDERED: ERYTHROMYCIN 1 GM TUBE OD SCH (22:00)
--- NOTE | 2024-01-18 22:09 | NUR ---
PATIENT RESTING IN BED. ASSESSMENT COMPLETE. PATIENT DENIES SOB OR PAIN. PATIENT REFUSING CATHETER CARE. PATIENT EDUCATED ON THE NEED FOR CATHETER CARE. IV FLUSHES WNL. SCDs IN PLACE. PATIENT HAS NO FURTHER NEEDS. CALL LIGHT IN REACH.
[2024-01-18] MEDS ORDERED: ERYTHROMYCIN 3.5 GM TUBE ONE (22:34)
--- NOTE | 2024-01-18 23:13 | NUR ---
CALL LIGHT ANSWERED. PATIENT UP TO BATHROOM WITH MINIMAL SBA AND FWW TO HAVE LIQUID BM. PATIENT BACK TO BED. THIS RN ASKED PATIENT IF HE WOULD PERFORM HIS OWN CATHETER CARE, PATIENT REFUSED. SCHEDULED EYE MEDICATION ADMINISTERED. PATIENT ANIYAH WELL. PATIENT HAS NO FURTHER NEEDS. BED ALARM ON FOR SAFETY.
[2024-01-19] VITALS (10 sets, daily range): BP systolic 102–139; BP diastolic 47–61
--- NOTE | 2024-01-19 00:54 | NUR ---
PATIENT RESTING IN BED WITH EYES CLOSED. RESPIRATIONS EVEN AND UNLABORED. CALL LIGHT IN REACH. 02 SAT 99% ON 3L NC.
--- NOTE | 2024-01-19 01:58 | NUR ---
DIVEMASTER OBTAINED VITALS AND I&O. CATH BAG EMPTIED. PT STATES NO NEEDS AT THIS TIME. CALL LIGHT WITHIN REACH.
--- NOTE | 2024-01-19 03:42 | NUR ---
CALL LIGHT ANSWERED. PATIENT IV PUMP ALARMING. NEW BAG IV FLUID INFUSING PER ORDER. PATIENT UP TO BATHROOM WITH MINIMAL SBA AND FWW TO HAVE SMALL LIQUID BM. PATIENT BACK TO BED. ANIYAH WELL. SCDs IN PLACE. CPOX IN PLACE. SCHEDULED EYE MEDICATION ADMINISTERED. UA OBTAINED FROM CATHETER BAG SENT TO LAB. PATIENT HAS NO FURTHER NEEDS. BED ALARM ON FOR SAFETY. CALL LIGHT IN REACH.
[2024-01-19 03:46] LABS: BILIRUBIN, URINE NEGATIVE (negative); BLOOD/HGB, URINE LARGE (Negative); KETONE, URINE NEGATIVE (Negative); LEUK ESTERASE, URINE SMALL (negative); NITRITE, URINE POSITIVE (negative); PH, URINE 5.5 (5-7)
[2024-01-19 03:51] LABS: EPITHELIAL CELLS, URINE SQUAMOUS 1+ /lpf (0-1+)
[2024-01-19 03:52] LABS: BACTERIA, URINE 4+ /hpf (negative); CASTS, URINE NONE SEEN \\lpf; COLLECTION TYPE, URINE CATH; CRYSTALS, URINE NONE SEEN (0-1+); RED BLOOD CELLS, URINE 21-40 /hpf (0-5); REFLEX CULTURE, URINE Yes (No); WHITE BLOOD CELLS, URINE >50 /HPF (0-5)
--- NOTE | 2024-01-19 04:21 | NUR ---
CALL LIGHT ANSWERED. PT STATED THAT HE NEEDED TO USE THE BATHROOM. BOBBIN WINDER TENDER ASSISTED PT TO BATHROOM. PT STATED THAT IT WAS A "FALSE ALARM". PT THEN ASSISTED BACK TO BED. SCDS AND CPOX RECONNECTED. PT STATES NO FURTHER NEEDS AT THIS TIME. CALL LIGHT WITHIN REACH AND BED ALARM ON.
--- NOTE | 2024-01-19 04:41 | NUR ---
PATIENT RESTING IN BED WITH EYES CLOSED. VS AND I&Os OBTAINED AND RECORDED. NEW BAG IV FLUID INFUSING PER ORDER. NO FURTHER NEEDS. CALL LIGHT IN REACH.
[2024-01-19 05:25] LABS: BASOPHILS 0.9 % (0-2); EOSINOPHILS 2.5 % (0-6); HEMATOCRIT 30.3 % (35.0-50.0); HEMOGLOBIN 10.4 g/dL (12.0-18.0); LYMPHOCYTES 28.3 % (24-44); MCHC 34.5 g/dl (30-36); MONOCYTES 14.3 % (0-12); PLATELET COUNT 189 K/uL (140-440); RBC 3.25 M/ul (4.3-5.7)
[2024-01-19 05:44] LABS: ALBUMIN 2.6 g/dL (3.4-5.0); ALBUMIN/GLOBULIN RATIO 0.96 (1.1-2.4); ANION GAP 11.5 (7-21); BILIRUBIN, TOTAL 0.7 ng/dL (0.2-1.0); BUN/CREATININE RATIO 24.44 (6.0-28.6); CREATININE, SERUM 1.35 mg/dL (0.70-1.30); MAGNESIUM 1.9 mg/dL (1.8-2.4); POTASSIUM 3.5 mmol/L (3.5-5.1); PROTEIN, TOTAL 5.3 g/dL (6.4-8.2)
[2024-01-19] MEDS ORDERED: TAMSULOSIN HCL 0.4 MG CAP PO SCH ×2 (06:00→21:00)
--- NOTE | 2024-01-19 06:41 | NUR ---
SCHEDULED MEDICATIONS ADMINISTERED. NO FURTHER NEEDS. CALL LIGHT IN REACH.
--- NOTE | 2024-01-19 07:45 | NUR ---
morning assessment complete. pt is resting w/ eyes closed. breathing even and unlabored. call light in reach. bed alarm on for comfort.
[2024-01-19] MEDS ORDERED: LEVOTHYROXINE SODIUM 50 MCG TAB PO SCH (09:00)
[2024-01-19] MEDS ORDERED: dilTIAZem HCL 240 MG CAPCR PO SCH (09:00)
[2024-01-19] MEDS ORDERED: ASPIRIN 81 MG TABEC PO SCH (09:00)
[2024-01-19] MEDS ORDERED: CITALOPRAM HYDROBROMIDE 20 MG TAB PO SCH (09:00)
[2024-01-19] MEDS ORDERED: DOXEPIN HCL6 MG PO (10:11)
--- NOTE | 2024-01-19 10:23 | NUR ---
UR CLINICAL REVIEW: [facility]- MEETS OBS FOR DEHYDRATION [facility] MEDICARE ADVANTAGE OBS 01/18/24 @ 1415 ORDER MATCHES STATUS AUTH PENDING, WILL SEND CLINICALS, IF REQUESTED, VIA RIGHTFAX. PLAN TO RETURN TO [facility] VS. SNF AT [place]. PENDING PT/OT EVALS. 01/20/24
--- NOTE | 2024-01-19 10:45 | NUR ---
Spoke with pt and he resides at [facility]. Discussed his daughter called earlier and would like pt to go to a SNF for rehab. She states pt collapses at times. Pt declines and states he will return to [facility]. I spoke with SABINA Elizalde. Pt did very well walking and using the bathroom. Pt was able to stand without assist. He was also seen by PT, the note has not been entered. Pt states he pays to have someone do his laundry and give him his meds. He walks to the dinning area for meals. He also states he provides self care and showers without assist. Pt denies issues with finances. Pt plans on dc to home when cleared by Dr. Zhang. I called his daughter and updated. She is upset and stating he needs help and staff at [facility] won't help him. I reminded her they are not an assisted living and do not have staff to assists pt. From what she is saying he needs to move to an assisted living. I let her know she needs to ask [facility] to give him a 30 day move out notice, if they feel he is over their level of care. We discussed DHS and applying for [facility] medicaid. She continues to repeat pt needs more care and staff are complaining as he will not help himself. We discussed the needs her father has are not covered by Medicare. She will need to assist him if he is unable to call for placement to assisted livings or funds for placement/cg through medicaid. She lives out of the area. I will email the list of assisted livings, caregiving service, and DHS's to her at [email or web address]. Daughter really wants pt to move to a SNF to live. We then discussed he would need to meet criteria and after speaking with OT, I don't think he does. Daughter again stating pt collapses when he is out. I let her know this did not happen with OT/PT. If pt does qualify, his insurance covers 20 days. He is declining placement. She then states she will override his choice. I let her know, we cannot go along with this. Pt is able to clearly state he will not go. Will follow up with pt tomorrow. I will review the PT note when completed.
[2024-01-19] MEDS ORDERED: TUBERCULIN PPD 5 UNITS/0.1 ML VIAL SUB-Q SCH (11:00)
[2024-01-19] MEDS ORDERED: LORazepam 1 MG TAB PO PRN (11:00)
[2024-01-19] MEDS ORDERED: POTASSIUM REPLACEMENT PROTOCOL ORAL/IV PO SCH (11:00)
[2024-01-19] MEDS ORDERED: THIAMINE HCL 100 MG,FOLIC ACID 1 MG,MULTIVITAMINS 10 ML in SODIUM CHLORIDE 0.9% 1,000 ML IV ONE (11:00)
--- NOTE | 2024-01-19 11:11 | NUR ---
VISITED DURING SPIRITUAL CARE ROUNDS. PT APPEARED TO BE SLEEPING. DID NOT DISTURB. PROVIDED PRAYER.
--- NOTE | 2024-01-19 11:14 | NUR ---
UR CLINICAL REVIEW: [facility] - MEETS INPATIENT CRITERIA FOR DEHYDRATION [employer] MEDICARE ADVANTAGE INPT 01/19/24 @ 1055 ORDER MATCHES STATUS AUTH PENDING, WILL SEND CLINICALS IF REQUESTED LIKELY DC TO SNF.
[2024-01-19] MEDS ORDERED: POTASSIUM CHLO20 ME2 PO (11:15)
[2024-01-19] MEDS ORDERED: MUCINEX1200 MG PO (11:15)
[2024-01-19] MEDS ORDERED: MIRALAX119 GM PO (11:16)
--- NOTE | 2024-01-19 11:16 | NUR ---
MED REC COMPLETE
--- NOTE | 2024-01-19 11:16 | NUR ---
MORNING ASSESSMEN COMPLETE. PT IS AWAKE IN THE CHAIR. DENIES PAIN. PT REFUSES THIS RN TO LOOK AT SKIN, STATES "MY SKIN IS NORMAL". THIS RN DISCUSSES IMPORTANCE OF SKIN CHECK. PT REMAINS TO REFUSE. CALL LIGHT IN REACH.
[2024-01-19 11:25] LABS: MAGNESIUM 1.9 mg/dL (1.8-2.4); PHOSPHORUS, INORGANIC 3.6 mg/dL (2.5-4.9); TSH, 3RD GENERATION 3.094 uIU/mL (0.358-3.740)
[2024-01-19] MEDS ORDERED: POTASSIUM CHLORIDE 10 MEQ TABCR PO ONE (11:45)
[2024-01-19] MEDS ORDERED: PHARMACY RENAL DOSE ADJUSTMENT 1 DOSE MISC PO SCH (12:00)
[2024-01-19] MEDS ORDERED: MEGESTROL ACETATE 40 MG TAB PO SCH (14:00)
[2024-01-19] MEDS ORDERED: LORazepam 2 MG TABLET PO SCH (14:00)
[2024-01-19] MEDS ORDERED: HEParin SOD (PORCINE) 5,000 UNIT/ML SDV SUB-Q SCH (14:00)
--- NOTE | 2024-01-19 14:00 | NUR ---
Notified by staff, Katia from [facility] is here. Spoke with Katia and she just wants us to know she spoke with Lg. Per Katia, Lg is a heavy drinker and drinks daily. She denies pt collapsing, but he falls out of his chair and falls down when he is drunk. They have discussed with him moving out unless he limits his drinking. The paid cg there has been assisting him on her own. He does not pay her. He does pay to have someone do his laundry and provide his meds. Per Katia, pt refuses to clean up after himself. He has diarrhea and wants the staff to clean after him. This is not provided. Katia discussed all of this with him today and he does agree to decrease his drinking. Dr. Zhang arrived to visit with pt and Katia updated her pts behaviors. At this time, plans on pt staying through Monday and dc on Monday back to [facility].
[2024-01-19] MEDS ORDERED: MAALOX/DIPHENHYDRAMINE/LIDOCAINE 1:1:1 BY VOLUME SUSP PO PRN (15:00)
--- NOTE | 2024-01-19 15:28 | NUR ---
THIS RN CALLED AND TALKED TO DR. METZGER REGARDING PTs TELE ORDER. PER DR. METZGER "KEEP PTs TELE PT IS UNDERGOING CIWA PRECAUTIONS." VERIFIED WITH READBACK.
--- NOTE | 2024-01-19 19:22 | NUR ---
BEDSIDE REPORT RECEIVED FROM RENZO RN, PT AROUSABLE, ALERT BUT DROWSY, WITHOUT REQUESTS EXCEPT FOR A WARM BLANKET, HOB ELEVATED APPROX 25 DEGREES, SIDE RAILS UP X 4, BED ALARM ON.
--- NOTE | 2024-01-19 20:58 | NUR ---
DATA ENTRY MACHINE OPERATOR AND RN OBTAINED VITALS AND I&O. CATH BAG EMPTIED. RN REMAINS IN ROOM. CALL LIGHT WITHIN REACH.
[2024-01-19] MEDS ORDERED: MIRTAZAPINE 15 MG TAB PO SCH (21:00)
--- NOTE | 2024-01-19 21:05 | NUR ---
PT RESTING QUIETLY, AWAKEN FOR VS, VS REVIEWED AND STABLE, ASSESSMENT COMPLETED, IV SITE PATENT RIGHT FOREARM, NS INFUSING WELL AT 125ML/HR, SCDS IN PLACE, KONG OUTPUT 50ML CLOUDY YELLOW, PLAN TO MONITOR OUTPUT, CPOX AT 100% ON 3L/NC, ATTENDS IN PLACE, DRY AT THIS TIME, CALL LIGHT IN REACH.
--- NOTE | 2024-01-19 22:23 | NUR ---
PT ASLEEP, AWAKEN, ALERT, NOTED SHAKINESS IN HANDS WITH PURPOSEFUL MOVEMENT, SUBSIDES WITH REST, RT MEDS GIVEN WELL ATIVAN, RESP RATE 20/MIN, EVEN THOUGH PT VERY DROWSY, ATIVAN GIVEN DUE TO DEGREE OF SHAKINESS IN ARMS. PT REPOSITIONED UP IN BED AND REPOSITIONED TOWARD BACK WITH SLIGHT TILT TOWARD RIGHT SIDE.
--- NOTE | 2024-01-19 23:37 | NUR ---
PT APPEARS TO SLEEP, RESP EVEN AND REG AT 20/MIN, CPOX AT 100%, PT REMAINS ON 3L/NC.
[2024-01-20] VITALS (9 sets, daily range): BP systolic 113–146; BP diastolic 40–78
--- NOTE | 2024-01-20 00:47 | NUR ---
PT APPEARS TO BE SLEEPING, RESP EVEN AND REG, OXYGEN REMAINS IN PLACE, CPOX AT 99%
--- NOTE | 2024-01-20 02:34 | NUR ---
TELEGRAPHIC TYPEWRITER REPAIRER OBTAINED VITALS AND I&O. CATH BAG EMPTIED. PT GIVEN WARM BLANKET UPON REQUEST. PT STATES NO FURTHER NEEDS AT THIS TIME. CALL LIGHT WITHIN REACH.
--- NOTE | 2024-01-20 02:43 | NUR ---
PT REMAINS AWAKE, ALERT, ABLE TO CORRECTLY STATE WHERE HE IS, ASSESSMENT AND ALCOHOL SCREEN COMPLETED, TREMORS IN HAND LESS, PT ATE SNACK ON HIS OWN, DECLINED ENSURE AT THIS TIME, IV PATENT.
[2024-01-20 05:35] LABS: BASOPHILS 0.4 % (0-2); EOSINOPHILS 1.3 % (0-6); HEMATOCRIT 27.2 % (35.0-50.0); HEMOGLOBIN 9.3 g/dL (12.0-18.0); LYMPHOCYTES 23.3 % (24-44); MCH 31.7 (27-36); MCHC 34.1 g/dl (30-36); MCV 92.8 fl (81-99); MONOCYTES 11.9 % (0-12); NEUTROPHILS 63.1 % (39-80); PLATELET COUNT 170 K/uL (140-440); RBC 2.93 M/ul (4.3-5.7); RDW 13.1 (10.5-15.0)
--- NOTE | 2024-01-20 05:47 | NUR ---
AUTOMOBILE BRAKE BONDER OBTAINED VITALS AND I&O. CATH BAG EMPTIED. PT STATES NO NEEDS AT THIS TIME. CALL LIGHT WITHIN REACH.
[2024-01-20 05:56] LABS: ALBUMIN 2.5 g/dL (3.4-5.0); ALBUMIN/GLOBULIN RATIO 1.04 (1.1-2.4); ANION GAP 11.7 (7-21); BILIRUBIN, TOTAL 0.6 ng/dL (0.2-1.0); BUN/CREATININE RATIO 23.95 (6.0-28.6); CREATININE, SERUM 0.96 mg/dL (0.70-1.30); POTASSIUM 3.7 mmol/L (3.5-5.1); PROTEIN, TOTAL 4.9 g/dL (6.4-8.2)
--- NOTE | 2024-01-20 06:45 | NUR ---
PT RESTING IN BED, ALERT, HAND TREMORS VERY MILD, PT MEDICATED WITH SCHEDULED ATIVAN, RESTING QUIETLY,IVF INFUSING WELL, SITE INTACT.
--- NOTE | 2024-01-20 07:13 | NUR ---
WHILE RECEIVING SHIFT REPORT. BUTT WELDER STATED PT WAS ON THE BEDSIDE COMMODE. THIS RN AND SUZETTE MARRUFO OUTSIDE ROOM TO PROVIDE PT PRIVACY. BUTT WELDER HEARD SHUFFELING AND PEAKED HEAD AND WITNESSED PT FALL FROM COMMODE TO THE GROUND HITTING R ELBOW AND BOTH KNEES. PT STOOD TO FEET W/ HELP OF NURSING STAFF. CLEANED UP AND PLACED INTO BED. VSS. BED ALARM ON. BLOOD SUGAR 96. [facility] SCORE 3. DR METZGER CALLED AT [address] TO THE FLOOR. PT SPEECH IS GARBLED, BUT DOESNT HAVE DENTURES IN DUE TO NOT PROPERLY FITTING. ABRASION NOTED TO THE R FLANK AREA, INTACT. CALL LIGHT IN REACH. FALL PROTOCOL INTITATED.
--- NOTE | 2024-01-20 07:15 | NUR ---
PT STATING THE NEED TO HAVE A BM. DESIGN PROJECT MANAGER 1PA PT TO [facility]. PT INSTRUCTED TO USE CALL LIGHT WHEN FINISHED. DESIGN PROJECT MANAGER LEFT ROOM TO PROVIDE PRIVACY AND REMAINED OUTSIDE ROOM. DESIGN PROJECT MANAGER HEARD COMMOTION IN ROOM AND OPENED CURTAIN. DESIGN PROJECT MANAGER WITNESSED PT FALL TO KNEES THEN RIGHT ELBOW FROM THE BEDSIDE COMMODE. THIS DESIGN PROJECT MANAGER AND SUZETTE BROWN AND SUZETTE CANNON ASSISTED PT BACK INTO BED. PT DENIED ANY PAIN. VITALS OBTAINED. DONATO PIZANO NOTED AN ABRASION ON PT RIGHT LOWER BACK AREA. PT ASKED AGAIN IF HE WAS IN ANY PAIN AND PT DENIED. SUZETTE BROWN REMAINED IN ROOM AND THIS DESIGN PROJECT MANAGER FILLED OUT IRIS.
--- NOTE | 2024-01-20 07:36 | NUR ---
DR METZGER AT RN STATION, VERBAL ORDER READ BACK TO DC TUBERSOL TEST-NO NEED TO COMPLETE.
--- NOTE | 2024-01-20 08:10 | NUR ---
IN WITH STEPHANIE, RN TO PLACE FALL MATS ON FLOOR. YELLOW FALL RISK BAND PLACED ON PTs RIGHT ARM. PT LAYING IN BED. BED ALARM ON. CALL LIGHT IN REACH.
[2024-01-20] MEDS ORDERED: CEFTRIAXONE/SODIUM CHLORIDE 1 GM/100 ML PIGGYBACK IV SCH (09:00)
[2024-01-20] MEDS ORDERED: MAGNESIUM REPLACEMENT PROTOCOL ORAL/IV IV SCH (09:00)
--- NOTE | 2024-01-20 10:34 | NUR ---
MORNING ASSESSMENT COMPLETE. PT IS AWAKE IN BED, PT ONLY ORIENTED TO SELF. PT BELIEVES WE ARE IN THE [place]. REORIENTED TO PLACE AND SURROUNDINGS. EYE REMIANS TO HAVE TO HAVE DISCHARGE, CLEANSED EYE WITH WARM WASH CLOTH. EYE OINTMENT ADMINISTERED (PER EMAR). LUNGS ARE COURSE IN ALL LOBES, WITH A WHEEZE NOTED. WHILE TAKING MEDICATIONS PUDDING WAS NEEDED TO HELP PT WITH TAKING THEM. AFTER BITES AND DRINKING, PT WOULD COUGH. PT WOULD BEGIN TO TRY AND DRINKING FROM CUP THAT WAS NOT NOT IN HAND, AND SUCK ON FINGER IN PRESENCE OF THE STRAW. KONG REMAINS IN PLACE, SEDIMENT IN TUBING. VERBAL ORDER TO CHANGE KONG. ABRASION NOTED TO THE R BACK FLANK AREA FROM RESULTS OF FALLING. BED ALARM ON FOR PT SAFTEY. REMINDED PT TO USE CALL LIGHT.
--- NOTE | 2024-01-20 10:53 | NUR ---
CALLED MD ON HEAD CT RESULTS. NO NEW ORDERS. DISCUSSED PT COUGHING AFTER INTAKE. NO NEW ORDERS. MD GAVE VERBAL ORDER TO HOLD OFF ON ATIVAN UNLESS PT IS BECOMING RESTLESS, SWEATING, AND HAS AN ELEVATED BP. REASSESS AT 1700.
--- NOTE | 2024-01-20 10:56 | NUR ---
Warm blanket has been given to patient and bed alarm has been set. No request from patient at this time
--- NOTE | 2024-01-20 11:50 | NUR ---
CHANGED PT KONG. 16F COUDE USED. PT TOLERATED WELL. FLASH OF URINE IN TUBE WHEN PLACED. PT GOT UP TO THE BSC, UNSTEADY ON FEET. HAS POOR SENSE OF DIRECTION AND SURROUNDINGS. PT WAS PLACED ON A WAFFLE MATTRESS, COMPLETE BED CHANGE AND GOWN. WARM BLANKETS PROVIDED. DONATO PIZANO IN ROOM TO ASSIST. PT HAD A SEMI LIQUID/SOFT BM. BED ALARM ON FOR SAFETY, CALL LIGHT IN REACH.
--- NOTE | 2024-01-20 12:27 | NUR ---
IN WITH DONATO CALLAWAY BED ALARM ALARMING. PT REPORTING TOILETING NEEDS AND NOTED TO BE ATTEMPTING TO GET OUT OF BED. 1PA FROM BED TO BSC. WHILE PT STAND PT NOTED TO HAVE LOOSE STOOL IN ATTENDS. PT PLACED ON BSC. ATTENDS REMOVED. NEW ATTENDS PLACED. PT DONE TOILETING. 1PA FROM BSC TO BED FOLLOWING HERMAN-CARE. PT BOOSTED UP IN BED. SIDE RAILS UP X4 FOR SAFTEY. BED ALARM ON. CALL LIGHT IN REACH. FALL MATS IN PLACE. RT DANYELL IN ROOM. NO OTHER NEEDS FROM THIS RN.
--- NOTE | 2024-01-20 12:56 | NUR ---
TALK TO DR METZGER SHE ORDER AN ABG AND XRAY FOR CHANGE OF BS AND INCREASED WOB , ABG RESULTS SHE HAS REVIEWED AND IS AT BEDSIDE
[2024-01-20 13:01] LABS: BASE EXCESS, BLOOD GAS -8.1 mmol/L (-2-2); HCO3, BLOOD GAS 17.7 mmol/L (22-26); O2 SATURATION, BLOOD GAS 98.9 % (95.0-100.0); OXYGEN RECEIVED, BLOOD GAS 3L; PCO2, BLOOD GAS 34.9 mmHg (35-45); PH, BLOOD GAS 7.31 (7.35-7.45); PO2, BLOOD GAS 98 mmHg (80-100); TOTAL CO2, BLOOD GAS 18.8
--- NOTE | 2024-01-20 13:13 | NUR ---
VERBAL FROM DR. METZGER TO CHANGE PTs DIET TO CLEAR LIQUID. PER DR. METZGER "CLEAR LIQUID DIET FOR NOW, IF PT IS STILL SHOWING SIGNS OF ASPIRATION THEN WE CAN MAKE HIM NPO." VERIFIED WITH READBACK.
[2024-01-20] MEDS ORDERED: methylPREDNISolone SOD SUCC 125 MG/2 ML VIAL IV ONE (13:15)
[2024-01-20 13:30] LABS: BASOPHILS 0.2 % (0-2); EOSINOPHILS 1.3 % (0-6); HEMATOCRIT 29.9 % (35.0-50.0); LYMPHOCYTES 18.5 % (24-44); MCH 31.5 (27-36); MCHC 33.4 g/dl (30-36); MCV 94.1 fl (81-99); MONOCYTES 9.3 % (0-12); NEUTROPHILS 70.7 % (39-80); PLATELET COUNT 180 K/uL (140-440); RBC 3.18 M/ul (4.3-5.7); RDW 13.4 (10.5-15.0)
--- NOTE | 2024-01-20 13:50 | NUR ---
PT NEEDING TO USE BSC. PT IS UNSTEADY ON FEET. 2PA W/ A FWW. PT LEANS FORWARD WHEN AMBULATING.
--- NOTE | 2024-01-20 13:51 | NUR ---
CALLED DR METZGER TO UPDATE LOW URINE OUTPUT. WAS ABLE TO GET 20 ML OF URINE FROM CATHETER BAG SINCE KONG INSERTION AT 1150. COLLECTED A URINE SAMPLE THAT SHOWED THICK SEDIMENT. VERBAL ORDER TO SEND TO LAB FOR URINE CULTURE.
--- NOTE | 2024-01-20 14:38 | NUR ---
CALLED DR METZGER ON CIWA SCORE OF 10. VSS. PT IS BECOMING RESTLESS, TRYING TO GET OUT OF BED, AND IS LAUGHING AT "PEOPLE SHOOTING [employer] TREES". SPOKE WITH DR METZGER ON ORTHOSTATIC ORDER THAT WAS PLACED AND FELT PT WAS NOT SAFE AT THIS TIME DUE TO WHEN TRANSFERRING TO THE COMMODE PT LEANS FORWARD AND IS UNSTABLE.
--- NOTE | 2024-01-20 16:30 | NUR ---
PT IS CONTINOUSLY TRYING TO GET OUT OF BED, MULTIPLE TRIPS TO THE BEDSIDE COMMODE. PT NOT UTILIZING CALL LIGHT.
[2024-01-20 17:11] LABS: ANION GAP 13.1 (7-21); BUN/CREATININE RATIO 28.15 (6.0-28.6); CALCIUM 8.4 mg/dL (8.5-10.1); CREATININE, SERUM 1.03 mg/dL (0.70-1.30); MAGNESIUM 1.7 mg/dL (1.8-2.4); POTASSIUM 4.1 mmol/L (3.5-5.1)
--- NOTE | 2024-01-20 18:20 | NUR ---
CALLED DR METZGER WITH AN UPDATE ON URINE OUTPUT OF 250 DURING THIS SHIFT. VERBAL ORDER TO GIVE INCREASE CONTIUNOUS FLUIDS TO 150 ML/HR. GIVE A 500 ML FLUID BOLUS AND RUN IT OVER AN HOUR. NEURO CHECKS Q 4. NEXT ONE ASSESS AT 2230, IF PT IS SLEEPING DO NOT WAKE FOR ASSESSMENT.
[2024-01-20] MEDS ORDERED: SODIUM CHLORIDE 0.9% 500 ML IV PRN (18:30)
--- NOTE | 2024-01-20 19:00 | NUR ---
SHIFT REPORT RECEIVED FROM RENZO RN, PT 1:1, WALE SEWELL AT BEDSIDE, PT NEEDING REDIRECTION, RESTLESS AT TIMES, SIDE RAILS UP X 4, FLOOR FALL MATS IN PLACE, BED LOW POSITION.
--- NOTE | 2024-01-20 19:50 | NUR ---
RESP TX IN FOR NEBULIZER TREATMENT, DISCUSSED PLAN OF CARE FOR TONIGHT, PT REMAINS ON 3L/NC. PT REMAINS RESTLESS, PT NOT AGITATED AT THIS TIME, NS BOLUS COMPLETE, IV RATE INCREASED TO 150ML/HR, SITE INTACT PER RIGHT FOREARM.
[2024-01-20] MEDS ORDERED: methylPREDNISolone SOD SUCC 40 MG/ML VIAL IV SCH (21:00)
--- NOTE | 2024-01-20 21:07 | NUR ---
PT CURRENT CIWA IS 5, KONG EMPTIED FOR 100ML YELLOW URINE, EXP WHEEZES NOTED UPPER LOBES, FINE CRACKLES LLL, DR METZGER CALLED AND ORDERS RECEIVED TO DECREASE IVF TO 75ML/HR, MD STATES IF PT CALM TO HOLD ATIVAN, BUT IF RESTLESS OR AGITATED MAY GO AHEAD AND GIVE PER ORDER, ONE TIME ORDER RECEIVED FOR PRN LASIX 20MG IV FOR INCREASED RESP DISTRESS, MOIST BREATH SOUNDS, AND SOB DURING THE NIGHT.
--- NOTE | 2024-01-20 21:15 | NUR ---
PT REMAINS AWAKE, TAKING AT TIMES, RT MEDS GIVEN WITH BITES OF PUDDING AND SIPS OF WATER, HOB ELEVATED APPROX 30-35 DEGREES WITH MEDS AND FLUIDS, PT REPOSITIONED UP IN BED, HOB LOWERED TO 25 DEGREES IN ATTEMPT TO REST.
--- NOTE | 2024-01-20 21:24 | NUR ---
PT TURNING SELF SIDE TO SIDE, ATTEMPTING TO REACH FOR SOMETHING ON FLOOR, RESTLESS, PT MEDICATED WITH ATIVAN 1MG PER ORDER. WALE SEWELL REMAINS AT BEDSIDE.
[2024-01-20] MEDS ORDERED: FUROSEMIDE 20 MG/2 ML VIAL IV PRN (22:15)
--- NOTE | 2024-01-20 23:10 | NUR ---
PT REMAINS AWAKE BUT MORE DROWSY, NEW DRAW SHEET AND CHUX PLACED UNDER PT, CATH CARE GIVEN, KONG PATENT, PT REPOSITIONED UP IN BED, PT LOOKING FOR ICE CREAM, PT GIVEN ENSURE, HOB ELEVATED AND ASSISTED WITH DRINKING WITH HELP OF WALE SEWELL. IV SITE PATENT, OXYGEN IN PLACE.
[2024-01-21] VITALS (9 sets, daily range): BP systolic 136–151; BP diastolic 53–72
--- NOTE | 2024-01-21 01:00 | NUR ---
PT REMAINS AWAKE, [employer] SAFETY TESTER AT BEDSIDE.
--- NOTE | 2024-01-21 02:45 | NUR ---
PT REMAINS AWAKE, PULLING ON BRANKETS, SPEECH GARBLED, VS REVIEWED, BREATH SOUNDS WITH SCATTERED WHEEZES, RESP RATE 20-24/MIN, OXYGEINT REMAINS IN PLACE, IV SITE PATENT, NS CONTS AT 75ML/HR, KONG EMPTIED FOR 250ML YELLOW URINE, CIWA SCORE OF 5 AT THIS TIME, WALE SEWELL REMAINS AT BEDSIDE.
--- NOTE | 2024-01-21 03:09 | NUR ---
PT MEDICATED WITH ATIVAN PER ORDER FOR CIWA OF 5, PT REMAINS RESTLESS, BUT NO AGITATED,
--- NOTE | 2024-01-21 04:00 | NUR ---
PT REMAINS AWAKE, BUT CLOSES EYES PERIODICALLY, MOVING HANDS AND GRABBING AT BLANKETS AT TIMES, IV PATENT. WALE SEWELL REMAINS AT BEDSIDE.
--- NOTE | 2024-01-21 05:40 | NUR ---
PT REMAINS AWAKE, SPEECH GARBLED, NEURO STATUS UNCHANGED, VS DONE AND STABLE, AFEBRILE, KONG EMPTIED FOR 150ML YELLOW URINE.
[2024-01-21 05:47] LABS: HEMATOCRIT 30.4 % (35.0-50.0); HEMOGLOBIN 10.2 g/dL (12.0-18.0); LYMPHOCYTES 8.3 % (24-44); MCH 31.6 (27-36); MCHC 33.4 g/dl (30-36); MCV 94.6 fl (81-99); MONOCYTES 1.3 % (0-12); NEUTROPHILS 90.4 % (39-80); PLATELET COUNT 162 K/uL (140-440); RBC 3.22 M/ul (4.3-5.7); RDW 13.1 (10.5-15.0)
[2024-01-21 06:04] LABS: BILIRUBIN, TOTAL 0.5 ng/dL (0.2-1.0); BUN/CREATININE RATIO 32.71 (6.0-28.6); CALCIUM 8.7 mg/dL (8.5-10.1); CREATININE, SERUM 1.07 mg/dL (0.70-1.30)
[2024-01-21 06:43] LABS: C. DIFF TOXIN B GENE TCDB,PCR Not Detected (())
--- NOTE | 2024-01-21 07:03 | NUR ---
PT REMAINS AWAKE, CALMER, RT EYE MEDICATION GIVEN.
[2024-01-21] MEDS ORDERED: FUROSEMIDE 40 MG/4 ML VIAL IV ONE (07:15)
--- NOTE | 2024-01-21 07:27 | NUR ---
Pt report received from SUZETTE Kenyon. New 1L Bag of NS hung at ordered rate at this time, per emar. Pt is resting, supine in bed, Aide Deyanira at bedside. White board updated. Call light, personal belongings, and bedside table in reach, side rails up x4.
--- NOTE | 2024-01-21 13:39 | NUR ---
PT RESTING IN BED. BRIEF SOILED AND CHANGED, CATH/HERMAN CARE PERFORMED. PT REPOS TO L. SIDE. VITALS AND IS AND OS COMPLETE. BED ALARM SET. FAMILY IN ROOM
--- NOTE | 2024-01-21 13:54 | NUR ---
CHANGED PT FOR SMALL AMT LIQUID STOOL. PT SLIGHTLY MORE AWAKE BUT NONSENSICAL SPEECH. FAMILY IN ROOM. MOUTH SWAB AND ORAL CARE DONE. BOOSTED IN BED. VS STABLE.
--- NOTE | 2024-01-21 14:54 | NUR ---
PT RESTING IN BED. RR EVEN AND UNLABORED. PT AROUSABLE TO STIMULI ONLY. SHIFT ASSESSMENT COMPLETE. 98% 02 ON RA. HR 79. BED ALARM SET. FALL MATS IN PLACE.
--- NOTE | 2024-01-21 16:29 | NUR ---
pt resting in bed. rr even and unlabored. bed alarm set, fall mat in place.
--- NOTE | 2024-01-21 16:55 | NUR ---
pt resting in bed. pt repos onto r. side. brief checked, clean and dry. pt only arousable to stimuli. warm blanket provided. bed alarm set, fall mat in place
--- NOTE | 2024-01-21 18:12 | NUR ---
PT RESTING IN BED. EYE OINTMENT ADMINISTERED PER EMAR. PT STILL ONLY AROUSABLE TO STIMULI. BED ALARM SET. CPOX 99% RA. FALL MATS IN PLACE. CALL LIGHT IN REACH
--- NOTE | 2024-01-21 19:10 | NUR ---
Assisted Pt with drinking orange juice and water. Provided fresh ice water and warm blanket. Call light left in reach. No other needs expressed by Pt.
--- NOTE | 2024-01-21 19:15 | NUR ---
SHIFT REPORT RECEIVED FROM CORINNA BRADFORD, ASSUMING CARE OF PT.
--- NOTE | 2024-01-21 19:20 | NUR ---
PT RESTING QUIETLY IN BED, RESP EVEN AND REG, SIDE RAILS UP X 4, BED ALARM ON.
--- NOTE | 2024-01-21 21:12 | NUR ---
V/S AND I&O'S COMPLETED. KONG CARE DONE. PATIENT FINISHED HIS ENSURE AND HAVE SOME BITES OF JELLO.
--- NOTE | 2024-01-21 22:03 | NUR ---
BED ALARM SOUNDING, pt TURNING IN BED. 2 STAFF IN ROOM, 1PA WITH FOUR WHEEL WALKER TO [facility] [place] FOR LIQUID STOOL. INCONTINENCE OF STOOL IN ATTENDS, ON BED. LINENS, MICA, ATTENDS CHANGED. KONG CARE COMPLETE. pt BACK IN BED. ALARM ON. WARM BLANKETS PROVIDED. BED IN LOW POSITION WITH FALL MAT IN PLACE.
--- NOTE | 2024-01-21 22:35 | NUR ---
PT RESTING QUIETLY IN BED, ALERT, UNABLE TO STATE CORRECTLY WHERE HE IS, ATTEMPTS MADE TO REORIENT, PT COOPERATIVE, SPEECH MORE CLEAR TONIGHT, ROUNTINE PO MEDS GIVEN WITH PUDDING AND WATER, SLX2 IN R AC AND R FA FLUSH WITHOUT DIFFICULTY, ASSESSMENT COMPLETED.
[2024-01-22] VITALS (10 sets, daily range): BP systolic 108–151; BP diastolic 46–92
--- NOTE | 2024-01-22 00:40 | NUR ---
PT AWAKE, ALERT, PUTTING TV REMOTE TO MOUTH, WHEN QUESTIONED PT STATES HE IS TRYING TO GET A DRINK, PT TOOK SIP OF WATER WITH NURSE ASSISTANCE BUT THEN STATES HE WANTS AN ENSURE, GIVEN PER [place] CYLINDER INSPECTOR, HOB ELEVATED APPROX 30 DEGRESS, OXYGEN REMAINS IN PLACE, SOME WREN AND FAINT AUDIBLE WHEEZES AT TIMES.
--- NOTE | 2024-01-22 01:45 | NUR ---
PT NOTED TO BE AWAKE, STATES HE FEELS WET, NOTED LIQUID STOOL IN ATTENDS, HERMAN AREA CLEANSED, SCOTAL AND BUTTOCK RED, BARRIER CREAM APPLIED, PT REPOSITIONED UP IN BED, VS COMPLETED AND STABLE. PT RESTING, OXYGEN DOWN TO 2L/NC DUE TO SATS 99%, PT CONTINUES TO HAVE FLUSHED FACE, AFEBRILE.
--- NOTE | 2024-01-22 03:50 | NUR ---
PT ASLEEP, RESP EVEN AND REG, CPOX AT 98%, BED ALARM ON, BED LOW POSITION.
--- NOTE | 2024-01-22 04:50 | NUR ---
PT AWAKE, ATTENDS PARTIALLY OFF, NOTED TO HAVE LIQUID STOOL, PERICARE CLEANSED, BARRIER CREAM APPLIED, REPOSITIONED UP IN BED, VS DONE AND STABLE, PT REMAINS FLUSHED IN THE FACE, NO TREMORS NOTED, PT CALM.
[2024-01-22 05:33] LABS: BASOPHILS 0.1 % (0-2); HEMATOCRIT 29.5 % (35.0-50.0); LYMPHOCYTES 4.8 % (24-44); MCHC 33.7 g/dl (30-36); MCV 94.8 fl (81-99); MONOCYTES 4.3 % (0-12); NEUTROPHILS 90.8 % (39-80); PLATELET COUNT 186 K/uL (140-440); RBC 3.12 M/ul (4.3-5.7); RDW 13.6 (10.5-15.0)
[2024-01-22 05:48] LABS: ALBUMIN 2.8 g/dL (3.4-5.0); ALBUMIN/GLOBULIN RATIO 0.9 (1.1-2.4); ANION GAP 16.4 (7-21); BILIRUBIN, TOTAL 0.3 ng/dL (0.2-1.0); BUN/CREATININE RATIO 34.74 (6.0-28.6); CALCIUM 8.9 mg/dL (8.5-10.1); CREATININE, SERUM 1.18 mg/dL (0.70-1.30); POTASSIUM 3.4 mmol/L (3.5-5.1); PROTEIN, TOTAL 5.9 g/dL (6.4-8.2)
--- NOTE | 2024-01-22 05:50 | NUR ---
PT ATTEMPTING TO GET OUT OF BED, SITTING UP ON LOWER SIDE OF BED, PT UNSURE WHERE HE WAS TRYING TO GO, ASSISTED BACK TO BED, SOME WREN
--- NOTE | 2024-01-22 08:12 | NUR ---
DR. METZGER IN TO SEE PATIENT.
[2024-01-22] MEDS ORDERED: POTASSIUM CHLORIDE 10 MEQ TABCR PO ONE (09:30)
--- NOTE | 2024-01-22 10:08 | NUR ---
MORNING ASSESSMENT IS COMPLETE. PATIENT HAD BM TO COMMODE+INCONTINENT. PATIENT UP TO CHAIR WITH PT 1PA WITH FWW, TREMORS CONTINES. PATIENT IS ON 1L 02 FOR 100%. MORNING MEDICATIONS GIVEN WITH APPLESAUCE AND PATIENT TOLERATED WELL, SOMETIMES COUGH WITH THIN LIQUIDS. WARM BLANKETS PROVIDED. EXPIRATORY WHEEZE NOTED IN ALL LUNG KERR. PATIENT HAS A POOR APPETITE, SEEMS TO COUGH ON THIN LIQUIDS. ORAL HYGIENE COMPLETE AFTER BREAKFAST. PATIENT DENIES PAIN OR NAUSEA.
--- NOTE | 2024-01-22 10:58 | NUR ---
RESTING IN RECLINER WITH EYES CLOSED. WILL RETURN TO SPEAK WITH PATIENT LATER TODAY.
--- NOTE | 2024-01-22 11:08 | NUR ---
PATIENT IS UP TO CHAIR, SLEEPING SOUNDLY. O2 AT 1L FOR 100% SATS. CHAIR ALARM IS ON.
--- NOTE | 2024-01-22 11:12 | NUR ---
UR CONCURRENT REVIEW: 2 MN FOR VERSALUS- PATIENT STILL REQUIRING INPATIENT LEVEL OF CARE [employer] MEDICARE ADVANTAGE OBS TO INPT 01/19/24 @ 1055 ORDER MATCHES REG NO AUTH REQUIRED PER MEDICARE GUIDELINES DISCHARGE PENDING FURTHER EVAL
[2024-01-22] MEDS ORDERED: FUROSEMIDE 40 MG/4 ML VIAL IV ONE (12:00)
--- NOTE | 2024-01-22 13:12 | NUR ---
PATIENT GIVEN 40MG OF IV LASIX, EYE OINTMENT APPLIED. EYES ARE LOOKING MUCH BETTER TODAY, VERY LITTLE REDNESS AND NO EXUDATE NOTED.
--- NOTE | 2024-01-22 14:57 | NUR ---
PATIENT BACK TO BED WITH 1PA AND FWW. PATIENT SLEPT THROUGH LUNCH, DENIES WANTING ANYTHING TO EAT, AND IS RIGHT BACK TO SLEEP IN BED.
--- NOTE | 2024-01-22 15:14 | NUR ---
VISITED DURING SPIRITUAL CARE ROUNDS. PT RECEIVING NURSING CARE. DID AILEEN JACOBO. PROVIDED PRAYER.
--- NOTE | 2024-01-22 16:30 | NUR ---
PATIENT IS SLEEPING WITH REGULAR RESPIRATIONS.
--- NOTE | 2024-01-22 18:06 | NUR ---
PATIENT CONTINUES TO BE VERY SLEEP, HAS A DIFFICULT TIME STAYING AWAKE TO EAT DINNER. THIS IS HIS BASELINE FOR TODAY.
--- NOTE | 2024-01-22 18:55 | NUR ---
PATIENT SITTING UP, ENCOURAGED TO FEED SELF DINNER. MASHED POTATOES AND GRAVEY.
--- NOTE | 2024-01-22 19:15 | NUR ---
SHIFT REPORT RECEIVED FROM JANESSA BRADFORD, PT RESTING IN BED, REPORTED BY HARINDER SEWELL THAT PT JUST FINISHED SOME MASHED POTATOES AND APPLESAUCE, PT SITTING UP APPROX 35 DEGREES IN BED, SIDE RAILS UP X 4, BED ALARM ON, BED LOW POSITION AND FALL MATS X [address]
--- NOTE | 2024-01-22 20:17 | NUR ---
PT RESTING QUIETLY WITH EYES CLOSED, RESP EVEN AND REG.
--- NOTE | 2024-01-22 20:23 | NUR ---
ROSARIO RT IN FOR NEBULIZER TREATMENT.
--- NOTE | 2024-01-22 21:55 | NUR ---
V/S AND I&O'S DONE AND CHARTED. KONG CARE DONE. VANILLA ENSURE AND CRISTIAN CRACKERS PROVIDED PER PATIENT. NO FURTHER NEEDS EXPRESSED AT THIS TIME. BED ALARM ON FOR SAFETY. FALL MAT BOTH SIDES IN PLACED. SIDE TABLE AND CALL LIGHT WITHIN REACH.
--- NOTE | 2024-01-22 22:17 | NUR ---
PT AWAKE, ABLE TO USE CALL LIGHT TO REQUEST ASSISTANCE, ANSWERS QUESTIONS IN SHORT STATEMENTS, ASSESSMENT COMPLETED, PT REMAINS ON RA, CPOX 95-96%, RT MEDS GIVEN EXCEPT FOR ADIVAN, ATIVAN HELD DUE TO PT BEING CALM AND ALERT, NO CURRENT SIGNS OF ALCOHOL W/D NOTED, SL R UPPER FA FLUSHES WELL, SL R AC FLUSHES WELL- REDRESSED DUE TO OLD BLOOD UNDER DRESSING, PT EAT 1/2 OF A PUDDING WITHOUT CHOKING, RECENTLY FINISHED A ENSURE, PT MEDICATED WITH TYLENOL FOR TEMP OF 99.4, SKIN DWIGHT, TV TURNED OFF AND HOB LOWERED TO APPROX 20 DEGREES PER REQUEST OF PT, SIDE RAILS UP X 4, BED LOW POSITION, FALL MATS IN PLACE AND CALL LIGHT IN REACH.
[2024-01-23] VITALS (10 sets, daily range): BP systolic 123–148; BP diastolic 44–60
--- NOTE | 2024-01-23 00:01 | NUR ---
PT APPEARS TO SLEEP, RESP EVEN AND REG, CPOX AT 96%, HR 86
--- NOTE | 2024-01-23 01:15 | NUR ---
NOISE HEARD IN ROOM, PT NOTED TO BE PUTTING WATER BACK ON HIS TABLE, PT REQUESTS THAT TABLE BE MOVED SO HE WON'T HIT IT, DONE, PT'S SPEECH CLEAR. VS DONE AND STABLE, PT AFEBRILE AT THIS TIME, PT REMAINS ON RA WITH STABLE OXYGEN SATS.
--- NOTE | 2024-01-23 02:05 | NUR ---
PT APPEARS TO SLEEP, REPOSITIONED HIMSELF TOWARD RIGHT SIDE, CPOX 96% ON RA, EYE OINTMENT HELD TO ALLOW PT TIME TO SLEEP.
--- NOTE | 2024-01-23 04:15 | NUR ---
PT ASLEEP, RESP EVEN AND REG, LAYING ON LEFT SIDE, WITHOUT DISTRESS.
[2024-01-23 05:31] LABS: HEMOGLOBIN 10.1 g/dL (12.0-18.0)
[2024-01-23 05:33] LABS: BASOPHILS 0.1 % (0-2); HEMATOCRIT 29.4 % (35.0-50.0); LYMPHOCYTES 5.5 % (24-44); MCH 31.9 (27-36); MCHC 34.4 g/dl (30-36); MCV 92.8 fl (81-99); MONOCYTES 4.3 % (0-12); NEUTROPHILS 90.1 % (39-80); PLATELET COUNT 218 K/uL (140-440); RBC 3.17 M/ul (4.3-5.7); RDW 13.9 (10.5-15.0)
--- NOTE | 2024-01-23 05:45 | NUR ---
LAB IN FOR AM BLOOD DRAW, NOTED +2 EDEMA IN UPPER ARMS BILATERALLY, ASSESSMENT COMPLETED, PT REMAINS ON RA WITH STABLE OXYGEN SATS. PERICARE GIVEN FOR SMALL LIQUID LIGHT BROWN STOOL, SCOTAL AND BUTTOCK REDDENED, BARRIER CREAM APPLIED, PT REQUESTING AN ENSURE,PT DRANK THE WHOLE CARTON, SOME COUGHING NOTED AT TIMES WITH DRINKING, PT REPOSTIONED TO RIGHT SIDE, RESTING WITH EYES CLOSED.
[2024-01-23 05:46] LABS: ALBUMIN 2.8 g/dL (3.4-5.0); ANION GAP 15.8 (7-21); BILIRUBIN, TOTAL 0.2 ng/dL (0.2-1.0); BUN/CREATININE RATIO 37.39 (6.0-28.6); CREATININE, SERUM 1.23 mg/dL (0.70-1.30); POTASSIUM 3.8 mmol/L (3.5-5.1); PROTEIN, TOTAL 5.6 g/dL (6.4-8.2)
--- NOTE | 2024-01-23 07:00 | NUR ---
PT AWAKE, URGENTLY WANTED TO GO TO THE BR, 2PA, PT HAD LARGE LIQUID STOOL, PERICARE COMPLETED PER [facility]P AID AND [facility] A[facility], PT RETURNED TO BED, RN ARRIVED AND PT DYSNIC, DUSKY, OXYEN PLACED ON PT AT 2L/NC, COLOR IMPROVING AND RESP RATE SLOWING, PT STATES HE HAS BEEN ON OXYGEN FOR A LONG TIME AT HOME, DAYSHIFT UPDATED.
--- NOTE | 2024-01-23 07:29 | NUR ---
REPORT RECIEVED FROM SUZETTE MARRUFO WITH CORINNA BRADFORD. PT RESTING IN BED. FALL MATS PLACED. BED ALARM ON. SN DINORA
--- NOTE | 2024-01-23 08:20 | NUR ---
Board has been updated and call light has been placed within reach. No request from patient
--- NOTE | 2024-01-23 09:46 | NUR ---
VISITED DURING SPIRITUAL CARE ROUNDS. PT DENIED IMMEDIATE NEEDS; MINIMALLY COMMUNICATIVE. ADVERTISING WRITER PROVIDED SUPPORTIVE PRESENCE, HOSPITALITY, PRAYER. PT EXPRESSED GRATITUDE.
--- NOTE | 2024-01-23 09:47 | NUR ---
PATIENT ALERT AND ORIENTED, SITTING UP IN BED. STATES HE DOES NOT WANT TO GO TO A RETIREMENT FACILITY. HE IS AGREEABLE TO HOME HEALTH, DOES NOT HAVE PREFERENCE TO WHICH HOME HEALTH AGENCY HE USES. STATES [facility] IS OK. DENIES OTHER NEEDS AT THIS TIME.
--- NOTE | 2024-01-23 11:02 | NUR ---
PT FINISHED WORKING WITH PT. ST WAS IN ROOM EARLIER WORKING WITH PT. ASSESSMENT COMPLETE, MEDS ADMINISTERED PER EMAR. BLOOD PRESENT IN URINE WELL BLOOD CLOTS IN KONG. BLOOD FOUND AROUND MEATUS, HERMAN AREA CLEANED. PT NOW SITTING UP IN CHAIR. CPOX ON. PT DENIES PAIN. CHAIR ALARM SET, FALL MATS IN PLACE. CALL LIGHT IN REACH.
--- NOTE | 2024-01-23 11:07 | NUR ---
ASSISTED PHYS ;THER PATRICIA WITH PT IN RESTROOM. PT HAD DIAHRREA AGAIN AND NOW HAS BLOOD AROUND THE MEATUS AND CLOTS IN THE KONG. APPEARS TO HAVE TUGGED ON CATH. DENIES DISCOMFORT.
--- NOTE | 2024-01-23 11:09 | NUR ---
IV ABX RUNNING. PT DENIES ANY NEEDS CALL LIGHT IN REACH
[2024-01-23] MEDS ORDERED: LOPERAMIDE HCL 2 MG CAP PO PRN (11:45)
[2024-01-23] MEDS ORDERED: LOPERAMIDE HCL 2 MG CAP PO ONE (11:45)
--- NOTE | 2024-01-23 11:50 | NUR ---
SPOKE WITH DR METZGER REGARDING HIS CONTINUED DIAHRREA. ORDERED IMMODIUM. EXPLAINED TO PT AND ADMINISTERED.
--- NOTE | 2024-01-23 13:15 | NUR ---
PT UP IN CHAIR WATCHING TV, EATING COOKIE. PT ASSESSMENT COMPLETE. AC IV DC'D DUE TO NOT BEING PATENT. WATER AND COFFEE PROVIDED. DENIES ANY NEEDS, CALL LIGHT IN REACH. FALL MATS PLACED AND CHAIR ALARM SET
[2024-01-23] MEDS ORDERED: FUROSEMIDE 20 MG TAB PO SCH (14:25)
--- NOTE | 2024-01-23 15:00 | NUR ---
EYE ABX ADMIN PER EMAR. PT UP IN CHAIR RESTING. 98% ON RA. CHAIR ALARM SET. DENIES ANY NEEDS, CALL LIGHT IN REACH.
--- NOTE | 2024-01-23 16:38 | NUR ---
PT SITTING UP IN CHAIR WATHCING TV AND RESTING. CHAIR ALARM SET, FALL MAT IN PLACE. CALL LIGHT IN REACH
--- NOTE | 2024-01-23 17:16 | NUR ---
PT SITTING UP IN BED. MEAL TRAY SET UP IN FRONT OF PT. CHAIR ALARM SET. FALL MATS IN PLACE. CALL LIGHT IN REACH.
--- NOTE | 2024-01-23 18:07 | NUR ---
PT UP IN CHAIR WATCHING TV. FINISHED W/ DINNER TRAY. KONG EMPTIED. VITALS AND I'S AND O'S COMPLETE. DENIES ANY NEEDS. CHAIR ALARM SET. FALL MATS IN PLACE. CALL LIGHT IN REACH
--- NOTE | 2024-01-23 18:23 | NUR ---
PT DID VERY WELL TODAY. HAS BEEN ALERT AND ORIENTED TO TIME, PLACE, SURROUNDINGS, AND SELF. HAS BEEN UP IN CHAIR MOST OF THE DAY AND HAS WORKED WITH PT. PT HAS ALSO HAS HAD A BETTER APPETITE. DID NOT REQUIRE ANY PRN ATIVAN OR SEROQUEL, WELL ANY PRN PAIN MEDS.
--- NOTE | 2024-01-23 19:20 | NUR ---
SHIFT REPORT RECEIVED FROM DAYSHIFT SUZETTE WEINSTEIN, pt AWAKE AND RESTING IN CHAIR WITH BLE ELEVATED IN CHAIR, CHAIR ALARM ON FOR SAFETY. CALL LIGHT AND PERSONAL BELONINGS IN REACH. WHEN ASKED IF pt NEEDS ANYTHING, pt STATES, "IF YA HAVE ANY 7 AND 7". pt INTERACTIVE AND JOKES WITH STAFF, DISCUSSED CURRENT DIET ORDER. WILL CONTINUE TO MONITOR. ON RA, RR EVEN AND UNLABORED.
--- NOTE | 2024-01-23 20:48 | NUR ---
v/s and i&o's completed. patient still up in the chair and watching tv. patient stated he will call when he is ready to go to bed. side table and call light within reach.
--- NOTE | 2024-01-23 21:20 | NUR ---
ASSESSMENT COMPLETE, SCHEDULED MEDS GIVEN W/O ISSUE WHOLE WITH HIGH PROETIN VANILLA ENSURE. VSS, CURRENT IV INFILTRATED WIHT FLUSH, NEW IV PLACED TO RIGHT WRIST AND SALINE LOCKED WNL. EDEMA NOTED TO RIGHT ARM FROM PREVIOUS IV SITE W/ COBAN WRAP-NOW REMOVED. CMS INTACT. KONG PATENT, SMALL AMOUNT BLOOD NOTED TO HEAD OF PENIS-WILL COMPLETE CATH CARE ONCE pt IS IN BED, pt WISHES TO GO TO BED AROUND [phone]. CHAIR ALARM ON FOR SAFETY AND CALL LIGHT IN REACH. SCATTERD BRUISES NOTED TO BUE. NEW GOWN AND WARM BLANKET PROVIDED. BILATERAL ALMAZ HOSE IN PLACE, STRONG BILATERAL PEDAL PULSES NOTED WITH HOSPITAL SOCKS IN PLACE. NO FURTHER NEEDS.
--- NOTE | 2024-01-23 21:49 | NUR ---
GAUZE/COBAN DRESSING FROM DC'D IV SITE ON THIS SHIFT REMOVED AT THIS TIME, NO BLEEDING NOTED AFTER REMOVAL OF DRESSING. pt DENIES ADDITIONAL NEEDS OR CONCERNS.
--- NOTE | 2024-01-23 22:34 | NUR ---
SCHEDULED EYE OINTMENT GIVEN-SEE EMAR. pt AWAKE AND WATCHING TV VIA RECLINER, DENIES NEEDS OR CONCERNS, APPEARS COMFORTABLE AND RELAXED. REMAINS ON RA, RR EVEN AND UNLABORED. CALL LIGHT IN REACH AND CHAIR ALARM ON TO ENSURE SAFETY.
--- NOTE | 2024-01-23 23:00 | NUR ---
ASSISTED PATIENT FROM CHAIR TO BED. PATIENT STATED HE DOES NOT NEED A WALKER. PATIENT IS STEADY ON HIS FEET. PATIENT NEEDS HELP FOR CORDS AND TUBINGS MANAGEMENT. KONG CARE DONE. NOTICED SOME BLOOD FRESH AND DRY AROUND THE PENIS AREA AND PULL UPS. FRESH ATTENDS PLACED. BED ALARM ON FOR SAFETY. FRESH ICE WATER PROVIDED. CALL LIGHT AND SIDE TABLE WITHIN REACH. DENIES FURTHER NEEDS AT THIS TIME.
--- NOTE | 2024-01-23 23:20 | NUR ---
DONATO KERN IN ROOM ASSISTIN pt BACK IN BED, BED ALARM ON FOR SAFETY AND CALL LIGHT IN REACH. UNABLE TO ASSESS BUTTUCKS EARLIER IN NIGHT D/T pt SITTING IN RECLINER. BLANCHABLE REDDNESS NOTED, pt NOW RESTING ON HIS SIDE-ABLE TO CAHNGE POSITIONS IN BED ON HIS OWN. DILAN REMAINS PATENT WITH STAT LOCK IN PLACE. pt DENIES ADDITIONAL NEEDS OR CONCERNS.
--- NOTE | 2024-01-24 00:55 | NUR ---
pt RESTING IN BED WITH EYES CLOSED, ON RA. RR EVEN AND UNLABORED. NO DISTRESS NOTED. CPOX IN ROOM SHOWS SPO2 96%, HR 90'S ON TELE. BED ALARM ON AND CALL LIGHT AND PERSONAL BELONGINS IN REACH. FALL MATS REMAIN IN PLACE FOR SAFETY.
--- NOTE | 2024-01-24 04:36 | NUR ---
SEE PAPER CHARTING FOR [facility] DOWNTIME BETWEEN [phone].
--- NOTE | 2024-01-24 04:47 | NUR ---
ROUNDED ON pt, pt RESTING IN BED WITH EYES CLOSED. ON RA, CPOX IN ROOM-SPO2 95% AND HR 80. RR EVEN AND UNLABORED, pt CHANGES POSITION IN BED INDEPENDENTLY, CURRENTLY ON BACK. BED ALARM ON AND CALL LIGHT AND PERSONAL BELONGINGS IN REACH. KONG REMAINS PATENT WITH NO BLOOD/BLOOD CLOTS NOTED IN CATHETER TUBING OR COLLECTION BAG.
--- NOTE | 2024-01-24 04:51 | NUR ---
pt HAD A GOOD NIGHT OVERALL, UNEVENTFUL. WENT FROM CHAIR TO BED AT APPROX 2300 AND SLEPT WELL FOR THE SHIFT. REMAINED ON RA, RR EVEN AND UNLABORED. EXP WHEEZES NOTED, SCHEDULED BREATHING TREATMENTS. pt DENIES SOB. CPOX IN ROOM. TELE #10, NSR-HR WNL RANGING MOSTLY BETWEEN 80-90'S. DIET-SOFT & BITE SIZED TEXTURE WITH SLIGHTLY THICK LIQUIDS. pt HAD HIGH PROTEIN VANILLA ENSURE BEFORE MED AND SWALLOWED MEDS WHOLE W/O ISSUE. NEW IV PLACED, 22G TO RIGHT WRIST-SALINE LOCKED. pt TOLERATED WELL. BED/CHAIR ALARM ON FOR SAFETY, pt REMAINS FORGETFUL TO DATE, BUT HAS BEEN CALLING APPROPRIATELY. 1PA WITH FWW. KONG PATENT, SCANT BLOOD NOTED TO TIP OF PENIS, HERMAN/CATH CARE DONE-pt VOIDING QS FOR THE SHIFT. SEE PAPER CHARTING FOR ADDITIONAL DETAILS REGARDING pt CARE BETWEEN HOURS [phone].
[2024-01-24 05:28] VITALS: BP 122/51
[2024-01-24 05:43] VITALS: BP 122/51
--- NOTE | 2024-01-24 05:47 | NUR ---
FOCUSED ASSESSMENT, VS, AND i&O'S COLLECTED AND STABLE. pt AWOKE EASILY TO VOICE, VSS. BED ALARM REMAINS IN PLACE AND CALL LIGHT IN REACH. KONG REMAINS PATENT, 200MLS YELLOW URINE EMPTIED, NO BLOOD OR BLOOD CLOTS NOTED IN CATHETER BAG OR TUBING. NO FURTHER NEEDS OR CONCERNS VERBALIZED, CALL LIGHT IN REACH.
--- NOTE | 2024-01-24 06:45 | NUR ---
rounded on pt, pt resting quietly in bed with eyes closed. on ra, rr even and unlaboreed. bed alarm on and call light in reach.
--- NOTE | 2024-01-24 07:23 | NUR ---
REPORT FROM MATT LARIOS RN.
[2024-01-24 07:32] VITALS: BP 122/51
--- NOTE | 2024-01-24 07:42 | NUR ---
MORNING ASSESSMENT IS COMPLETE. DR. TRUONG IN TO SEE PATIENT AND WILL CONSIDER MORNING LABS FOR TODAY. PATIENT UP TO CHAIR WITH 1PA AND FWW. PATIENT HAS AUDIBLE EXPIRATORY WHEEZES, DESATS TO 89% WITH MOVEMENT ON ROOM AIR AND THEN RETURNED TO 95% ON ROOM AIR WITHING 2 MINUTES. PATIENT DENIES PAIN OR NAUSEA. TELE IN PLACE. CONTINUOUS PULSE OX IN PLACE. CHRONIC KONG IN PLACE, CATH CARE COMPLETE, CLEAR YELLOW URINE NOTED. BEDDING FRESHENED. PATIENT IS SITTING ON ON CHAIR CUSION.
--- NOTE | 2024-01-24 07:52 | NUR ---
GOT PT UP IN THE CHAIR WITH THE NURSE. CHANGED PT LINENS. PT DIDNT WANT A BLANKET. DID HERMAN CARE ON PT. PT DIDNT NEED ANYTHING ELSE AND CALL LIGHT IS WITHIN REACH.
[2024-01-24] MEDS ORDERED: HEParin SOD (PORCINE) 5,000 UNIT/ML SDV SUB-Q SCH (09:00)
--- NOTE | 2024-01-24 09:19 | NUR ---
PATIENT TO COMMODE WITH 1PA FOR SOFT, SMALL BM. MORNING MEDICATIONS GIVEN WITH SIPS OF WATER. PATIENT IS ABLE TO TAKE HIS OWN PILLS AND APPLY EYE OINTMENT. IV ROCEPHIN INFUSING FOR 1 HOUR.
--- NOTE | 2024-01-24 09:22 | NUR ---
PATIENT UP IN RECLINER, ALERT AND ORIENTED. DISCUSSED DC PLAN. STILL NOT WILLING TO GO TO SNF. HE IS AGREEABLE TO HAVE HOME HEALTH COME IN TO [place] APARTMENT FOR THERAPIES. DISCUSS IMM LETTER, SIGNED AND PLACED IN CHART.
[2024-01-24 09:34] VITALS: BP 129/47
[2024-01-24] MEDS ORDERED: POTASSIUM CHLO10 MEQ PO (09:48)
[2024-01-24] MEDS ORDERED: LOPERAMIDE2 MG PO (09:49)
[2024-01-24] MEDS ORDERED: MIRTAZAPINE15 MG PO (09:50)
--- NOTE | 2024-01-24 10:08 | NUR ---
VISITED DURING SPIRITUAL CARE ROUNDS. PT APPEARED TO BE SLEEPING. DID NOT DISTURB. PROVIDED PRAYER.
--- NOTE | 2024-01-24 10:44 | NUR ---
ATTEMPT TO CALL DAUGHTER, KRISTIN, TO INFORM HER OF DC ORDERS AND PATIENT REFUSAL TO REVIEW DC PAPERS. STAFF NOTIFIED MESSAGE LEFT FOR DAUGHTER.
--- NOTE | 2024-01-24 11:25 | NUR ---
CLINICALS, FACESHEE, ORDERS AND NOTES FAXED TO [facility].
--- NOTE | 2024-01-24 11:54 | NUR ---
CALLED AND SPOKE WITH HIMANSHU AT [facility] TO INFORM HER PATIENT IS DISCHARGING TODAY. STATES SHE WILL PICK HIM UP BETWEEN 12-1230. STAFF NOTIFIED.
--- NOTE | 2024-01-24 12:26 | NUR ---
RIGHT WRIST IV D/C'D WITH CATHETER INTACT. PATIENT IS DRESSED AND READY FOR [facility] TO COME PICK HIM UP.
--- NOTE | 2024-01-24 16:37 | NUR ---
Received a return call from Garrett's daughter Anh. She is not happy pt was discharged and wanted him to go to a SNF. Lengthy conversation about pt choice and pt is able to make his own choices. He declined multiple times to leave [facility] and wanted to return. She feels pt should remain until his appetite improves and he does not have diarrhea. We discussed these are chronic issues and pt may have these issues the rest of his life. I discussed with daughter, pt does have 30 days to go to a SNF if he changes his mind. We again discussed pts are allowed to make poor choices. He cannot be forced to go to a SNF. We discussed SNF, Aging and disability and applying for [place] medicaid, and hospice. Daughter will call pt luisito.
== END 2024-01-24 13:00 | disposition home health service (06) | DRG 682 ==
LOC: ED 14:14 → MS 14:15
PROVIDERS: Emergency Medicine; ADMIT Family Medicine; ATTEND Family Medicine
PROC: 4A033R1 Measurement of Arterial Saturation, Peripheral, Percutaneous Approach (ICD-10-PCS; principal; 2024-01-19)
DX: N17.9 Acute kidney failure, unspecified (principal); E43 Unspecified severe protein-calorie malnutrition; N39.0 Urinary tract infection, site not specified; Z68.1 Body mass index [BMI] 19.9 or less, adult; F05 Delirium due to known physiological condition; R19.7 Diarrhea, unspecified; E86.0 Dehydration; J44.9 Chronic obstructive pulmonary disease, unspecified; E03.9 Hypothyroidism, unspecified; I10 Essential (primary) hypertension; K59.09 Other constipation; F10.10 Alcohol abuse, uncomplicated; F39 Unspecified mood [affective] disorder; D64.9 Anemia, unspecified; H10.9 Unspecified conjunctivitis; W19.XXXA Unspecified fall, initial encounter; Z95.0 Presence of cardiac pacemaker; Z98.890 Other specified postprocedural states; Z90.89 Acquired absence of other organs; Z79.51 Long term (current) use of inhaled steroids; Z79.899 Other long term (current) drug therapy; Z79.01 Long term (current) use of anticoagulants; Z79.82 Long term (current) use of aspirin; Z79.890 Hormone replacement therapy; Z99.81 Dependence on supplemental oxygen
CPT/HCPCS: 36415; 36600; 70450; 71045; 74176; 80048; 80053; 81001; 82803; 83690; 83735; 83880; 84100; 84443; 85025; 85060; 87040; 87045; 87046; 87070; 87075; 87077; 87088; 87186; 87205; 87493; 92610; 94640; 94762; 97161; 97164; 97165; 97530; A9270; G0378; G0480; J0696; J1940; J2919; J3411; J7030; J7042

== ENCOUNTER 2024-01-24 17:46 | Inpatient (IN) | payer MEDICARE ==
[~2024-01-24] VITALS: Ht 175.3 cm; Wt 50.0 kg
[~2024-01-24 17:46] MED LIST changes: +CITALOPRAM HBR10 MG PO; +DOXEPIN HCL6 MG PO; +FUROSEMIDE20 MG PO; +LOPERAMIDE2 MG PO; +MIRTAZAPINE15 MG PO; +MUCINEX1200 MG PO; +POTASSIUM CHLO10 MEQ PO; +POTASSIUM CHLO20 ME2 PO
--- OUTSIDE RECORDS SUMMARY | 2024-01-24 17:52 | XMS ---
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 Robinson VISIT COUNT (12 MO.) [address] [place] [address] TOTAL 10 NOTE: Visits indicate total known visits. ED/UCC VISIT TRACKING (12 MO.) 01/24/2024 17:46 ANASTAS[facility] TYPE: Emergency COMPLAINT: - WEAKNESS 01/18/2024 14:14 [facility] TYPE: Emergency COMPLAINT: - WEAKNESS 08/03/2023 15:31 [facility] TYPE: Emergency COMPLAINT: - CATHETER PROBLEM 07/06/2023 18:47 A[facility]ST[facility] TYPE: Emergency COMPLAINT: - CATHETER PROBLEM DIAGNOSES: - Chronic obstructive pulmonary disease, unspecified - Essential (primary) hypertension - Hormone replacement therapy - Hypothyroidism, unspecified - FPC (current) use of aspirin - FPC (current) use of inhaled steroids - overhead crane operator (current) 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 - Other constipation - Other knitter operator (current) drug therapy - Other mechanical complication of other urinary catheter, initial encounter 06/24/2023 07:57 [facility] TYPE: Emergency COMPLAINT: - DIFFICULTY BREATHING DIAGNOSES: - Chronic obstructive pulmonary disease with (acute) exacerbation - Heart failure, unspecified - Hypertensive heart disease with heart failure - overhead crane operator (current) use of aspirin - FPC (current) 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 - Other knitter operator (current) drug therapy - Shortness of breath 06/19/2023 16:43 [facility] TYPE: Emergency COMPLAINT: - FOOT SWELLING DIAGNOSES: - Chronic obstructive pulmonary disease with (acute) exacerbation - Heart failure, unspecified - Hormone replacement therapy - Hypertensive heart disease with heart failure - Hypo-osmolality and hyponatremia - Hypothyroidism, unspecified - overhead crane operator (current) use of aspirin - Other knitter operator (current) drug therapy - Presence of cardiac pacemaker - Shortness of breath 05/10/2023 20:36 [facility] TYPE: Emergency COMPLAINT: - SHORTNESS OF BREATH DIAGNOSES: - Chronic obstructive pulmonary disease with (acute) exacerbation - Contact with and (suspected) exposure to COVID-19 - Encounter for screening for COVID-19 - Essential (primary) hypertension - Hormone replacement therapy - Hypothyroidism, unspecified - overhead crane operator (current) use of aspirin - FPC (current) use of inhaled steroids - Other [facility] (current) drug therapy - Shortness of breath 05/04/2023 10:44 [facility] TYPE: Emergency COMPLAINT: - LOWER EXTREMITY SWELLING DIAGNOSES: - Balanitis - Chronic obstructive pulmonary disease, unspecified - Disorder of penis, unspecified - Essential (primary) hypertension - Hormone replacement therapy - Hypothyroidism, unspecified - Other knitter operator (current) drug therapy - Presence of cardiac pacemaker 04/16/2023 18:41 [facility] TYPE: Emergency COMPLAINT: - CONSTIPATION 04/13/2023 18:33 [facility] TYPE: Emergency COMPLAINT: - WEAKNESS DIAGNOSES: - Chronic obstructive pulmonary disease, unspecified - Constipation, unspecified - Essential (primary) hypertension - Hypothyroidism, unspecified - Other knitter operator (current) drug therapy INPATIENT VISIT TRACKING (12 MO.) 01/19/2024 10:55 [facility]ST[facility] TYPE: Medical Surgical COMPLAINT: - DIARRHEA CIRILO DEHYDRATION 04/16/2023 18:42 ANAST[facility] TYPE: Observation COMPLAINT: - ACUTE KIDNEY INJURY, UTI DIAGNOSES: - Acute kidney failure, unspecified - Chronic obstructive pulmonary disease, unspecified - Contact with and (suspected) exposure to COVID-19 - Encounter for screening for COVID-19 - Essential (primary) hypertension - Hypothyroidism, unspecified - Obstructive and reflux uropathy, unspecified - Other constipation [email or web address]
[2024-01-24 18:15] LABS: BILIRUBIN, URINE NEGATIVE (negative); BLOOD/HGB, URINE LARGE (Negative); KETONE, URINE NEGATIVE (Negative); LEUK ESTERASE, URINE TRACE (negative); NITRITE, URINE NEGATIVE (negative); PH, URINE 5.5 (5-7)
[2024-01-24 18:22] LABS: BACTERIA, URINE RARE /hpf (negative); CASTS, URINE NONE SEEN \\lpf; CRYSTALS, URINE AMORPHOUS URATES 1+ (0-1+); EPITHELIAL CELLS, URINE 0 /lpf (0-1+); RED BLOOD CELLS, URINE >50 /hpf (0-5); REFLEX CULTURE, URINE Yes (No)
[2024-01-24 18:23] LABS: COLLECTION TYPE, URINE CATH
[2024-01-24 18:32] LABS: BASOPHILS 0.1 % (0-2); HEMATOCRIT 30.4 % (35.0-50.0); HEMOGLOBIN 10.4 g/dL (12.0-18.0); MCH 31.9 (27-36); MCHC 34.1 g/dl (30-36); MCV 93.6 fl (81-99); MONOCYTES 11.9 % (0-12); PLATELET COUNT 223 K/uL (140-440); RBC 3.25 M/ul (4.3-5.7); RDW 13.8 (10.5-15.0)
[2024-01-24 18:50] LABS: ALBUMIN 2.9 g/dL (3.4-5.0); ALBUMIN/GLOBULIN RATIO 1.07 (1.1-2.4); ANION GAP 12.9 (7-21); BILIRUBIN, TOTAL 0.3 ng/dL (0.2-1.0); BUN/CREATININE RATIO 37.98 (6.0-28.6); CALCIUM 8.3 mg/dL (8.5-10.1); CREATININE, SERUM 1.29 mg/dL (0.70-1.30); MAGNESIUM 1.9 mg/dL (1.8-2.4); POTASSIUM 3.9 mmol/L (3.5-5.1); PROTEIN, TOTAL 5.6 g/dL (6.4-8.2)
[2024-01-24] MEDS ORDERED: DIPHTH,PERTUSS(ACELL),TET VAC 0.5 ML SYRINGE IM ONE (22:00)
[2024-01-25] VITALS (8 sets, daily range): BP systolic 114–132; BP diastolic 43–60
[2024-01-25] MEDS ORDERED: ALBUTEROL/IPRATROPIUM 3 ML NEB INH ONE (00:30)
[2024-01-25 05:35] LABS: HEMATOCRIT 28.6 % (35.0-50.0); HEMOGLOBIN 9.8 g/dL (12.0-18.0); MCHC 34.2 g/dl (30-36); MCV 93.4 fl (81-99); PLATELET COUNT 219 K/uL (140-440); RBC 3.06 M/ul (4.3-5.7); RDW 14.1 (10.5-15.0)
[2024-01-25 05:56] LABS: ALBUMIN 2.5 g/dL (3.4-5.0); ANION GAP 10.9 (7-21); BILIRUBIN, TOTAL 0.2 ng/dL (0.2-1.0); BUN/CREATININE RATIO 39.83 (6.0-28.6); CALCIUM 8.2 mg/dL (8.5-10.1); CREATININE, SERUM 1.18 mg/dL (0.70-1.30); POTASSIUM 3.9 mmol/L (3.5-5.1)
[2024-01-25 06:02] LABS: BANDS, MANUAL DIFF 2; LYMPHOCYTES, MANUAL DIFF 18; MONOCYTES, MANUAL DIFF 13; NEUTROPHILS, MANUAL DIFF 67
[2024-01-25] MEDS ORDERED: ALBUTEROL SULFATE 0.083% 3 ML VIAL INH PRN (07:00)
[2024-01-25] MEDS ORDERED: BUDESONIDE 0.5 MG/2 ML VIAL INH SCH (08:00)
[2024-01-25] MEDS ORDERED: ALBUTEROL/IPRATROPIUM 3 ML NEB INH SCH (08:00)
[2024-01-25] MEDS ORDERED: ENOXAPARIN SODIUM 40 MG/0.4 ML SYR SUB-Q SCH (09:23)
[2024-01-25] MEDS ORDERED: predniSONE 20 MG TAB PO SCH (09:25)
[2024-01-25] MEDS ORDERED: PHARMACY RENAL DOSE ADJUSTMENT 1 DOSE MISC PO SCH (12:00)
[2024-01-26] VITALS (9 sets, daily range): BP systolic 102–138; BP diastolic 45–74
[2024-01-26 05:37] LABS: HEMATOCRIT 27.8 % (35.0-50.0); HEMOGLOBIN 9.5 g/dL (12.0-18.0); MCH 32.1 (27-36); MCHC 34.3 g/dl (30-36); MCV 93.6 fl (81-99); PLATELET COUNT 203 K/uL (140-440); RBC 2.97 M/ul (4.3-5.7); RDW 13.6 (10.5-15.0)
[2024-01-26 06:03] LABS: ALBUMIN 2.4 g/dL (3.4-5.0); ALBUMIN/GLOBULIN RATIO 0.92 (1.1-2.4); ANION GAP 9.6 (7-21); BILIRUBIN, TOTAL 0.5 ng/dL (0.2-1.0); BUN/CREATININE RATIO 47.95 (6.0-28.6); CALCIUM 8.3 mg/dL (8.5-10.1); CREATININE, SERUM 0.98 mg/dL (0.70-1.30); MAGNESIUM 2.2 mg/dL (1.8-2.4); POTASSIUM 4.6 mmol/L (3.5-5.1)
[2024-01-26 06:06] LABS: LYMPHOCYTES, MANUAL DIFF 17; MONOCYTES, MANUAL DIFF 7; NEUTROPHILS, MANUAL DIFF 76
[2024-01-26] MEDS ORDERED: MEGESTROL ACETATE 40 MG TAB PO SCH (07:00)
[2024-01-26] MEDS ORDERED: CEPHALEXIN MONOHYDRATE 500 MG CAP PO SCH (09:00)
[2024-01-26] MEDS ORDERED: DOXYCYCLINE HYCLATE 100 MG CAP PO SCH (09:00)
--- NOTE | 2024-01-26 19:39 | EKG ---
[facility] [address] [facility] [place] [id number] Signed Normal sinus rhythm Normal ECG When compared with ECG of 24-JAN-2024 18:11, (Unconfirmed) No significant change was found Confirmed by Cindy Maldonado MD ([id number]) on 01/26/2024 7:39:10 PM Electronically Signed By: CINDY MALDONADO MD 01/26/241938 PATIENT NAME: WILFREDO SERVIN Electrocardiogram DATE OF : 35 PHYSICIAN: CINDY MALDONADO MD REPORT #: [id number] REPORT IS CONFIDENTIAL AND NOT TO BE RELEASED WITHOUT AUTHORIZATION
[2024-01-27] VITALS (10 sets, daily range): BP systolic 120–149; BP diastolic 44–62
[2024-01-27 05:26] LABS: BASOPHILS 0.1 % (0-2); EOSINOPHILS 0.1 % (0-6); HEMATOCRIT 30.2 % (35.0-50.0); HEMOGLOBIN 10.4 g/dL (12.0-18.0); LYMPHOCYTES 14.3 % (24-44); MCH 32.4 (27-36); MCHC 34.5 g/dl (30-36); MCV 93.9 fl (81-99); MONOCYTES 8.9 % (0-12); NEUTROPHILS 76.6 % (39-80); PLATELET COUNT 223 K/uL (140-440); RBC 3.22 M/ul (4.3-5.7)
[2024-01-27 05:41] LABS: ALBUMIN 2.6 g/dL (3.4-5.0); ALBUMIN/GLOBULIN RATIO 0.93 (1.1-2.4); ANION GAP 9.4 (7-21); BILIRUBIN, TOTAL 0.6 ng/dL (0.2-1.0); BUN/CREATININE RATIO 44.44 (6.0-28.6); CALCIUM 8.2 mg/dL (8.5-10.1); CREATININE, SERUM 0.99 mg/dL (0.70-1.30); MAGNESIUM 2.1 mg/dL (1.8-2.4); POTASSIUM 4.4 mmol/L (3.5-5.1); PROTEIN, TOTAL 5.4 g/dL (6.4-8.2)
[2024-01-27] MEDS ORDERED: DAPTOmycin 500 MG/10 ML VIAL IV SCH (11:26)
[2024-01-28] VITALS (8 sets, daily range): BP systolic 110–153; BP diastolic 41–63
[2024-01-28 05:36] LABS: BASOPHILS 0.1 % (0-2); EOSINOPHILS 0.2 % (0-6); HEMATOCRIT 29.5 % (35.0-50.0); LYMPHOCYTES 17.3 % (24-44); MCH 32.3 (27-36); MONOCYTES 10.5 % (0-12); NEUTROPHILS 71.9 % (39-80); PLATELET COUNT 232 K/uL (140-440); RBC 3.11 M/ul (4.3-5.7); RDW 13.7 (10.5-15.0)
[2024-01-28 05:56] LABS: ALBUMIN 2.5 g/dL (3.4-5.0); ALBUMIN/GLOBULIN RATIO 1.04 (1.1-2.4); ANION GAP 9.2 (7-21); BILIRUBIN, TOTAL 0.9 ng/dL (0.2-1.0); BUN/CREATININE RATIO 45.23 (6.0-28.6); CALCIUM 8.3 mg/dL (8.5-10.1); CREATININE, SERUM 0.84 mg/dL (0.70-1.30); MAGNESIUM 2.1 mg/dL (1.8-2.4); POTASSIUM 4.2 mmol/L (3.5-5.1); PROTEIN, TOTAL 4.9 g/dL (6.4-8.2)
[2024-01-29] VITALS (10 sets, daily range): BP systolic 109–144; BP diastolic 37–63
--- NOTE | 2024-01-29 06:23 | EKG ---
[facility] [address] [facility] [place], [place] [address] Signed EKG completed, results pending confirmation PATIENT NAME: WILFREDO SERVIN Electrocardiogram DATE OF : 35 PHYSICIAN: PRELIMINARY REPORT #: [id number] REPORT IS CONFIDENTIAL AND NOT TO BE RELEASED WITHOUT AUTHORIZATION
[2024-01-30 05:18] VITALS: BP 133/54
[2024-01-30 05:19] VITALS: BP 133/54
[2024-01-30 05:31] LABS: HEMATOCRIT 29.9 % (35.0-50.0); MCH 31.8 (27-36); MCHC 33.4 g/dl (30-36); MCV 95.2 fl (81-99); PLATELET COUNT 240 K/uL (140-440); RBC 3.14 M/ul (4.3-5.7)
[2024-01-30 05:45] LABS: ALBUMIN 2.5 g/dL (3.4-5.0); ALBUMIN/GLOBULIN RATIO 1.04 (1.1-2.4); ANION GAP 9.2 (7-21); BILIRUBIN, TOTAL 0.8 ng/dL (0.2-1.0); BUN/CREATININE RATIO 30.92 (6.0-28.6); CALCIUM 7.9 mg/dL (8.5-10.1); CREATININE, SERUM 0.97 mg/dL (0.70-1.30); POTASSIUM 4.2 mmol/L (3.5-5.1); PROTEIN, TOTAL 4.9 g/dL (6.4-8.2)
[2024-01-30 05:58] LABS: BANDS, MANUAL DIFF 3; LYMPHOCYTES, MANUAL DIFF 31; MONOCYTES, MANUAL DIFF 7; NEUTROPHILS, MANUAL DIFF 59
[2024-01-30 09:26] VITALS: BP 124/45
[2024-01-30 13:31] VITALS: BP 124/43
[2024-01-30 17:16] VITALS: BP 127/54
[2024-01-30 21:52] VITALS: BP 124/49
[2024-01-31] VITALS (7 sets, daily range): BP systolic 113–162; BP diastolic 46–68
[2024-02-01] VITALS (10 sets, daily range): BP systolic 120–133; BP diastolic 42–52
[2024-02-01] MEDS ORDERED: predniSONE 20 MG TAB PO SCH (09:00)
[2024-02-01] MEDS ORDERED: TRIMETHOPRIM/SULFAMETHOXAZOLE 1 EA TAB PO SCH (12:41)
[2024-02-02 05:19] VITALS: BP 141/53
[2024-02-02 05:26] VITALS: BP 141/53
[2024-02-02 09:38] VITALS: BP 122/43
[2024-02-02 10:47] VITALS: BP 122/43
[2024-02-02] MEDS ORDERED: SULFAMETHOXAZO1 EAC1 PO (11:58)
[2024-02-02] MEDS ORDERED: MEGESTROL ACETA40 MG PO (12:00)
[2024-02-02 14:45] VITALS: BP 131/76
[2024-02-02 15:00] VITALS: BP 131/76
== END 2024-02-02 15:00 | DRG 190 ==
LOC: ED 17:46 → MS 17:47
PROVIDERS: Emergency Medicine; Family Medicine; Internal Medicine; ADMIT Student in an Organized Health Care Education/Training Program; ATTEND Student in an Organized Health Care Education/Training Program
DX: J44.1 Chronic obstructive pulmonary disease with (acute) exacerbation (principal); E43 Unspecified severe protein-calorie malnutrition; L03.116 Cellulitis of left lower limb; Z68.1 Body mass index [BMI] 19.9 or less, adult; F10.10 Alcohol abuse, uncomplicated; Z71.41 Alcohol abuse counseling and surveillance of alcoholic; R31.9 Hematuria, unspecified; E03.9 Hypothyroidism, unspecified; I10 Essential (primary) hypertension; K59.00 Constipation, unspecified; Z95.0 Presence of cardiac pacemaker; Z98.890 Other specified postprocedural states; R19.7 Diarrhea, unspecified; Z79.899 Other long term (current) drug therapy; Z79.890 Hormone replacement therapy; Z79.82 Long term (current) use of aspirin; S41.112A Laceration without foreign body of left upper arm, initial encounter; W18.30XA Fall on same level, unspecified, initial encounter; Z79.51 Long term (current) use of inhaled steroids; Z99.81 Dependence on supplemental oxygen
CPT/HCPCS: 36415; 70450; 71045; 71046; 72125; 73030; 80053; 81001; 82553; 83735; 84484; 85025; 87088; 90471; 90715; 93005; 93010; 94640; 94760; 94762; 97116; 97162; 97165; 97168; 97530; 97535; 99285-25; A9270; G0378; G0480; J0878; J1650; J7512